=== PATIENT | male | born 1960 | race Caucasian/White ===

== ENCOUNTER 2018-03-03 20:13 | Outpatient (CLI) | END 2018-03-03 20:28 | disposition short-term general hospital (02) | LOC: AMBL 20:13 | PROVIDERS: ATTEND Internal Medicine | DX: M62.838 Other muscle spasm (principal); R19.7 Diarrhea, unspecified ==

== ENCOUNTER 2024-04-12 10:08 | Inpatient (IN) ==
--- NOTE | 2024-04-12 10:34 | ED.PDOC ---
General ED Provider: Dr. RICARDO MOYA MD Chief Complaint: Diarrhea Stated Complaint: Patient is a 63-year-old male that reported to the emergency department after a fall this morning. EMS was called to a fall at approximately 0 930 this morning. It was stated that the patient had fallen and hit his head. EMS reported that the patient refused to come to the emergency department. They stated that they were called back approximately 30 minutes later for patient could not get off the toilet and had severe diarrhea. They stated that the patient was clammy and diaphoretic. They stated the patient's blood pressure was hypotensive with a systolic of 80 and a diastolic of 50. They stated that the patient was also found to be tachycardic. EMS was told that the patient is unknown drug user that lives at home alone and there has been multiple known drug users in and out of the patient's house recently. They stated that the patient has houseperson that comes over for a couple hours a day and that helps him with his medications. They stated that the house that are normally comes over around 10 AM so the patient has not had his medicines this morning. In the emergency department patient reported neck pain midline and on the left side of the neck. He stated that the pain was a 6 out of 10. He stated that the pain was mainly with movement of the neck and palpation. Patient stated that he did not take anything for his pain since his fall this morning. Patient denied any radiation of the pain down the patient's arm. Patient stated that he still had use of his arms and legs. Patient stated that he still has sensation in his arms as well. Patient was alert and oriented person, place, and time. Patient had a GCS of 15. Patient also reported liquid diarrhea that started this morning. Patient denied any acute abdominal pain. Patient denied any hematochezia, hemoptysis, melenic stools. Patient denied any shortness of breath, or chest pain. Patient was found to have an O2 sat of 90% on room air. Patient is not normally on home O2 so we placed patient on nasal cannula oxygen at 2 L to bring the patient's O2 sat up to 95%. Patient was also found to have a heart rate of 108 bpm in the emergency department. Again patient denied any chest pain or shortness of breath. Patient did state that he has been diaphoretic this morning. Patient denied any nausea or vomiting. Patient stated that nothing has made his symptoms better or worse. Patient again stated that he has not treated any of his symptoms. Patient denies any other acute symptoms not currently mentioned in this HPI. Patient did report a history of anxiety and states that he takes Lexapro. Patient stated that he has not had his medicine this morning so he is somewhat anxious as well. Patient's vital signs are stable. Patient's BP is currently 126/70 with a MAP of 79. Patient's heart rate is 105 bpm. Patient's O2 sat is 95% on 2 L nasal cannula. Patient's respirations were 21 respirations per minute. Again patient is GCS 15 and is alert and oriented to person, place, and time. Time Seen by Provider: 04/12/24 10:18 Mode of Arrival: Ambulance Information Source: Patient and EMT Exam Limitations: No limitations Primary Care Provider: DONNIE MESSER PA-C Nursing and Triage Documentation Reviewed and Agree: Yes What is Opioid Naive?: *Opioid Naive implies the patient is not already taking opioids or not chronically receiving opioids on a daily basis. *PRN dosing is not "usually" associated with tolerance. *Patients are at higher risk of over-sedation and aspiration. What is Opioid Tolerant?: *Opioid Tolerance implies less than the expected response to an opioid. *Acquired tolerance is defined by the patient taking 60mg of oral morphine daily (or equianalgesic dose of another opioid) for 1 week or more. *Often associated with chronic pain. *May take more than usual dose to achieve desired pain control. Review of Systems Review Of Systems Constitutional: Reports Diaphoresis Eyes: Reports No symptoms Ears, Nose, Mouth, Throat: Reports No symptoms Respiratory: Reports No symptoms Cardiac: Reports No symptoms GI: Reports Diarrhea : Reports No symptoms Musculoskeletal: Reports Neck pain Skin: Reports No symptoms Neurological: Reports Anxiety Endocrine: Reports No symptoms Hematologic/Lymphatic: Reports No symptoms All Other Systems: Reviewed and Negative [facility] Medical History Diarrhea R19.7 - Diarrhea, unspecified (ICD-10) Headache R51.9 - Headache, unspecified (ICD-10) Encounter for routine history and physical exam for male Z00.00 - Encounter for general adult medical examination without abnormal findings (ICD-10) Bilateral lower extremity pain M79.604 - Pain in right leg (ICD-10) M79.605 - Pain in left leg (ICD-10) Methamphetamine abuse F15.10 - Other stimulant abuse, uncomplicated (ICD-10) Contact with or exposure to communicable disease Z20.9 - Contact with and (suspected) exposure to unspecified communicable disease (ICD-10) Hallucination, visual R44.1 - Visual hallucinations (ICD-10) Pain due to onychomycosis of toenails of both feet B35.1 - Tinea unguium (ICD-10) M79.675 - Pain in left toe(s) (ICD-10) M79.674 - Pain in right toe(s) (ICD-10) Skin lesion of scalp L98.9 - Disorder of the skin and subcutaneous tissue, unspecified (ICD-10) 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 - Nonspecific reaction to tuberculin skin test without active tuberculosis (ICD-10) Family History Mother Breast cancer, left FATHER Hypertension SISTER Cardiac disease Social History Smoking and tobacco status: Former smoker Alcohol intake: former Substance use type: does not use Janet/protestant: BUDDHIST Special janet needs: No Agree to transfusion: Yes Adopted: No Caregiver/support person: No Household members: none Housing: apartment Marital status: D Number of children: 0 Highest education level completed: 9th grade Financial difficulty paying for basics: not applicable service: No Current occupational status: disabled Previous occupational history: photography Pets and animals: No History of recent travel: No Sexually active: No Do you think of yourself as: straight/heterosexual Current gender identity: male Seatbelt use: always Drives intoxicated or rides with intoxicated class a truck driver: No Physical Exam Physical Exam Appearance: Reports Well-nourished Ill-appearing: Moderate Pain Distress: Moderate Eyes: Reports BHARAT, EOMI and Conjunctiva clear ENT: Reports Ears normal, Nose normal and Dry mucosa (Patient had dry mucous membranes in the oral cavity.) Neck: Supple Respiratory: Reports Airway patent, Breath sounds clear, Breath sounds equal and Respirations nonlabored Cardiovascular: Reports Pulses normal, No rub, No murmur and Tachycardia GI/: Reports Soft, Nontender, No masses, Bowel sounds normal and No Organomegaly Musculoskeletal: Reports Normal strength, No edema, No calf tenderness, Limited ROM (Patient had limited range of motion in the cervical spine due to pain.) and Other (Patient had tenderness to palpation over the cervical vertebral column. Patient also had tenderness to palpation over the paraspinal muscles with spasming of the neck. No step-offs were noted.) Skin: Reports Warm, Dry and Normal color Neurological: Reports Sensation intact, Motor intact, Reflexes intact, Cranial nerves intact, Alert and Oriented Psychiatric: Reports Anxious Critical Care Note Critical Care Note Total Critical Care Time (mins): 120 Comments: Critical Care Note: Critical Care Procedure Note Authorized and Performed by:Dr. Ricardo Moya MD, MPH Total critical care time: 120minutes Due to a high probability of clinically significant, life threatening deterioration, the patient required my highest level of preparedness to intervene emergently and I personally spent this critical care time directly and personally managing the patient. This critical care time included obtaining a history; examining the patient; pulse oximetry; ordering and review of studies; arranging urgent treatment with development of a management plan; evaluation of patient's response to treatment; frequent reassessment; and, discussions with other providers. This critical care time was performed to assess and manage the high probability of imminent, life-threatening deterioration that could result in multi-organ failure. It was exclusive of separately billable procedures and treating other patients and teaching time. Please see MDM section and the rest of the note for further information on patient assessment and treatment. Course Course 04/12/24 10:20 04/12/24 10:20 Orders, Labs, Meds: Lab Review 04/12/24 04/12/24 04/12/24 10:20 10:25 11:11 WBC 14.22 H RBC 6.24 H Hgb 16.6 Hct 50.9 MCV 81.6 MCH 26.6 L MCHC 32.6 RDW Coeff of Domingo 13.6 Plt Count 156 Immature Gran % (Auto) 0.6 Neut % (Auto) 89.6 H Lymph % (Auto) 4.9 L Sully % (Auto) 4.8 Eos % (Auto) 0.0 Baso % (Auto) 0.1 Neut # (Auto) 12.7 H Lymph # (Auto) 0.7 Sully # (Auto) 0.7 Eos # (Auto) 0.0 Baso # (Auto) 0.0 Immature Gran # (Auto) 0.1 ESR 2 PT 12.4 H INR 1.20 Puncture Site Rt rad Base Excess -5.1 L O2 Saturation 96.5 ABG pH 7.37 ABG pCO2 35.0 ABG pO2 88.0 ABG HCO3 20.2 L ABG Total CO2 21.3 Farooq Test Pos Hemoglobin 1.6 H Oxyhemoglobin 94.5 L Carboxyhemoglobin 2.0 H Total Hemoglobin 16.8 O2 Delivery Device Cannula Oxygen Liter Flow 2.00 FiO2 % 28.0 Sodium 141.5 Potassium 3.76 Chloride 108.7 H Carbon Dioxide 15.7 L Anion Gap 20.86 BUN 46.3 H Creatinine 1.95 H Estimated GFR (MDRD) 35.00 BUN/Creatinine Ratio 23.74 Glucose 150.8 H Lactic Acid 5.56 H Calcium 9.65 Magnesium 2.09 Total Bilirubin 1.85 H AST 148.8 H ALT 54.2 H Alkaline Phosphatase 132.8 H Total Creatine Kinase 5273.9 H CK-MB (CK-2) 34.700 H* CK-MB (CK-2) % 0.6500 Troponin I 0.130 H Total Protein 7.70 Albumin 4.87 Globulin 2.83 Albumin/Globulin Ratio 1.72 Procalcitonin 1.94 H Plasma/Serum Alcohol Influ A Molecular Assay Negative by naat Influ B Molecular Assay Negative by naat RSV Antigen Negative by naat SARS CoV-2 RNA Rapid FABIENNE Negative 04/12/24 12:19 WBC RBC Hgb Hct MCV MCH MCHC RDW Coeff of Domingo Plt Count Immature Gran % (Auto) Neut % (Auto) Lymph % (Auto) Sully % (Auto) Eos % (Auto) Baso % (Auto) Neut # (Auto) Lymph # (Auto) Sully # (Auto) Eos # (Auto) Baso # (Auto) Immature Gran # (Auto) ESR PT INR Puncture Site Base Excess O2 Saturation ABG pH ABG pCO2 ABG pO2 ABG HCO3 ABG Total CO2 Farooq Test Hemoglobin Oxyhemoglobin Carboxyhemoglobin Total Hemoglobin O2 Delivery Device Oxygen Liter Flow FiO2 % Sodium Potassium Chloride Carbon Dioxide Anion Gap BUN Creatinine Estimated GFR (MDRD) BUN/Creatinine Ratio Glucose Lactic Acid 2.15 H Calcium Magnesium Total Bilirubin AST ALT Alkaline Phosphatase Total Creatine Kinase CK-MB (CK-2) CK-MB (CK-2) % Troponin I Pending Total Protein Albumin Globulin Albumin/Globulin Ratio Procalcitonin Plasma/Serum Alcohol < 10.0 Influ A Molecular Assay Influ B Molecular Assay RSV Antigen SARS CoV-2 RNA Rapid FABIENNE Orders Category Date Time Status EKG-(ED ONLY) Stat CARDIO 04/12/24 10:40 Completed C-collar [ED IMMOBILIZATION] .ONCE EMERGENCY 04/12/24 10:18 Active ED APPLY O2 .ONCE EMERGENCY 04/12/24 10:18 Active ED GOLD FRAME ASSEMBLER APPLIED .ONCE EMERGENCY 04/12/24 10:18 Active ED IV/MEDIPORT/POWERPORT .ONCE EMERGENCY 04/12/24 10:18 Active ED VITAL SIGNS .ONCE EMERGENCY 04/12/24 10:18 Active ABG COOX Stat LAB 04/12/24 11:11 Completed BLOOD ALCOHOL Stat LAB 04/12/24 12:19 Results BLOOD CULTURE (ED ONLY) Stat LAB 04/12/24 11:02 Received C-REACTIVE PROTEIN Stat LAB 04/12/24 10:20 Received CBC W/ AUTO DIFF Stat LAB 04/12/24 10:20 Completed COMPREHENSIVE METABOLIC PANEL Stat LAB 04/12/24 10:20 Completed CREATINE KINASE Stat LAB 04/12/24 10:20 Completed DRUG SCREEN (RAPID FOR ED) [DRUG SCREEN, URINE, RAPID] LAB 04/12/24 12:15 Received Stat ESR Stat LAB 04/12/24 10:20 Completed FLU A/B MOLECULAR Stat LAB 04/12/24 10:25 Completed LACTIC ACID Stat LAB 04/12/24 10:20 Completed LACTIC ACID Stat LAB 04/12/24 12:19 Completed MAGNESIUM Stat LAB 04/12/24 10:20 Completed MRSA SCREEN Routine LAB 04/12/24 10:25 Received PROCALCITONIN Stat LAB 04/12/24 10:20 Completed PT WITH INR Stat LAB 04/12/24 10:20 Completed RSV Stat LAB 04/12/24 10:25 Completed SARS COV-2 RNA RAPID FABIENNE Stat LAB 04/12/24 10:25 Completed TROPONIN I Stat LAB 04/12/24 10:20 Completed TROPONIN I Stat LAB 04/12/24 12:19 Results URINALYSIS C & S IF INDICATED Stat LAB 04/12/24 12:15 Received 0.9 % Sodium Chloride [Saline Flush] Meds 04/12/24 10:18 Active 1 syr IVF PRN PRN Aspirin [Aspirin Chewable] Meds 04/12/24 11:09 Discontinued 324 mg PO ONCE STA Ceftriaxone 1 gm Vial [Rocephin 1 gm Vial] Meds 04/12/24 10:39 Discontinued 1 gm IVP ONCE ONE Lorazepam [Ativan] Meds 04/12/24 10:34 Discontinued 1 mg IVP ONCE STA Sodium Chloride 0.9% [Sodium Chloride] 1,000 ml Meds 04/12/24 10:41 Discontinued IV BOLUS Sodium Chloride 0.9% [Sodium Chloride] 1,000 ml Meds 04/12/24 11:11 Discontinued IV BOLUS CHEST, 1V AP ONLY Stat RADS 04/12/24 10:[address] CERVICAL SPINE W/O CONTRAST Stat RADS 04/12/24 10:[address] HEAD W/O CONTRAST Stat RADS 04/12/24 10:22 Completed Medications Generic Name Dose Route Start Last Admin Trade Name Freq PRN Reason Stop Dose Admin Sodium Chloride 1 syr 04/12/24 10:18 0.9% Sodium Chloride 10 Ml Disp.Syrin IVF PRN PRN To flush IV Discontinued Medications Generic Name Dose Route Start Last Admin Trade Name Freq PRN Reason Stop Dose Admin Aspirin 324 mg 04/12/24 11:09 04/12/24 11:15 Aspirin 81 Mg Tab.Chew PO 04/12/24 11:10 324 mg ONCE STA Administration Ceftriaxone Sodium 1 gm 04/12/24 10:39 04/12/24 10:54 Ceftriaxone 1 Gm Vial IVP 04/12/24 10:40 1 gm ONCE ONE Administration Sodium Chloride 1,000 mls @ 1,000 mls/hr 04/12/24 10:41 04/12/24 11:46 Sodium Chloride IV 04/12/24 11:40 Infused BOLUS ONE Infusion Sodium Chloride 1,000 mls @ 1,000 mls/hr 04/12/24 11:11 04/12/24 12:05 Sodium Chloride IV 04/12/24 12:10 1,000 mls/hr BOLUS ONE Administration Lorazepam 1 mg 04/12/24 10:34 04/12/24 11:15 Lorazepam Inj 2 Mg/Ml Vial IVP 04/12/24 10:35 1 mg ONCE STA Administration Vital Signs: Temp Pulse Resp BP Pulse Ox O2 Flow Rate 04/12/24 12:31 102 H 20 132/82 97 2 04/12/24 10:25 2 04/12/24 10:25 2 04/12/24 10:09 98.2 F 104 H 18 98/67 92 L Discharge Plan Discharge Patient Disposition: PLACED OBSERVATION Discharge Problem: Cervical spine pain, Cervical paraspinal muscle spasm, CHRISTOPHER (acute kidney injury), Acute hypoxic respiratory failure Sepsis Qualifiers: Sepsis type: sepsis due to unspecified organism Sepsis acute organ dysfunction status: unspecified Qualified Code(s): A41.9 - Sepsis, unspecified organism Anxiety disorder Qualifiers: Anxiety disorder type: unspecified anxiety disorder Qualified Code(s): F41.9 - Anxiety disorder, unspecified Fall Qualifiers: Encounter type: initial encounter Qualified Code(s): W19.XXXA - Unspecified fall, initial encounter Rhabdomyolysis Qualifiers: Rhabdomyolysis type: non-traumatic Qualified Code(s): M62.82 - Rhabdomyolysis Did you review [place] OPHTHALMIC AIDE for ALL controlled substances?: Not Applicable ED Provider: RICARDO MOYA Condition: Stable Physician Progress Note: Patient is a 63-year-old male that reported to the emergency department after a fall this morning. EMS was called to a fall at approximately 0 930 this morning. It was stated that the patient had fallen and hit his head. EMS reported that the patient refused to come to the emergency department. They stated that they were called back approximately 30 minutes later for patient could not get off the toilet and had severe diarrhea. They stated that the patient was clammy and diaphoretic. They stated the patient's blood pressure was hypotensive with a systolic of 80 and a diastolic of 50. They stated that the patient was also found to be tachycardic. EMS was told that the patient is unknown drug user that lives at home alone and there has been multiple known drug users in and out of the patient's house recently. They stated that the patient has houseperson that comes over for a couple hours a day and that helps him with his medications. They stated that the house that are normally comes over around 10 AM so the patient has not had his medicines this morning. In the emergency department patient reported neck pain midline and on the left side of the neck. He stated that the pain was a 6 out of 10. He stated that the pain was mainly with movement of the neck and palpation. Patient stated that he did not take anything for his pain since his fall this morning. Patient denied any radiation of the pain down the patient's arm. Patient stated that he still had use of his arms and legs. Patient stated that he still has sensation in his arms as well. Patient was alert and oriented person, place, and time. Patient had a GCS of 15. Patient also reported liquid diarrhea that started this morning. Patient denied any acute abdominal pain. Patient denied any hematochezia, hemoptysis, melenic stools. Patient denied any shortness of breath, or chest pain. Patient was found to have an O2 sat of 90% on room air. Patient is not normally on home O2 so we placed patient on nasal cannula oxygen at 2 L to bring the patient's O2 sat up to 95%. Patient was also found to have a heart rate of 108 bpm in the emergency department. Again patient denied any chest pain or shortness of breath. Patient did state that he has been diaphoretic this morning. Patient denied any nausea or vomiting. Patient stated that nothing has made his symptoms better or worse. Patient again stated that he has not treated any of his symptoms. Patient denies any other acute symptoms not currently mentioned in this HPI. Patient did report a history of anxiety and states that he takes Lexapro. Patient stated that he has not had his medicine this morning so he is somewhat anxious as well. Patient's vital signs are stable. Patient's BP is currently 126/70 with a MAP of 79. Patient's heart rate is 105 bpm. Patient's O2 sat is 95% on 2 L nasal cannula. Patient's respirations were 21 respirations per minute. Again patient is GCS 15 and is alert and oriented to person, place, and time. -Will place patient in a c-collar as he has positive midline pain to palpation. No step-offs noted on physical exam of the vertebral columns. Patient also had tenderness to palpation over the left paraspinal muscles of the cervical spine. Limited ROM in the cervical spine due to pain. -Will order an EKG, troponin, CPK, and baseline labs. Due to patient's diaphoresis (however the patient is afebrile) and elevated heart rate with diarrhea we will treat patient as possible sepsis at the current time and order IV normal saline 1 L bolus, lactate, and blood cultures. Will treat patient with IV ceftriaxone 1 g. -Will order CT of the head due to patient's fall and hitting head at 0 930 this morning. This will be to rule out any intracranial bleeding or any other acute pathology of the head. -Will order CT of the cervical spine to rule out any fractures or dislocations or any other acute pathology. -Will give the patient IV Ativan 1 mg for anxiety at this time. -EKG shows sinus tachycardia with a rate of 103 bpm. Normal axis is noted. No acute ST elevations is noted. This was interpreted by the ER physician. -Due to patient's acute hypoxemic respiratory failure will continue patient on nasal cannula at 2 L. -Patient's ABG was taken while he had the 2 L nasal cannula on and it showed a pH of 7.37, pCO2 of 35, pO2 of 88, and bicarb of 20.2. -Patient has a leukocytosis of 14,000 with a neutrophilic predominance. We have treated for infectious causes with IV ceftriaxone 1 g as mentioned above. We have given IV fluids at 1 L normal saline bolus. -Patient has an christopher. Patient as mentioned above is receiving fluids which should help with hydration of the kidneys. CT of the head shows no intracranial bleed or other acute pathology. -CT of the cervical spine shows no acute fracture. Multilevel degenerative changes noted. -Will remove C collar for patient. -Patient has a transaminitis. Patient's troponin slightly elevated this is likely due to the patient's infectious diffuse ischemia and less likely cardiogenic in nature. Will repeat troponin at 2-hour.. Will give the patient an aspirin. -Patient's lactic acid is 5.5. Patient CPK is 34.7 indicating patient has rhabdomyolysis. Will continue fluids. -([id number]) spoke to hospitalist, KHUSHI Sosa about the patient's diagnosis of CHRISTOPHER, sepsis due to gastrointestinal infection. Also discussed patient's diffuse ischemia with elevated troponins that are stable. Patient vital signs are stable at time of admission. Hospitalist has agreed admit this patient for observation. -Repeat lactic's come down to 2.5. Patient's repeat troponin is stable at 0.126. -Patient will be placed on obs with tele for SEPSIS, CHRISTOPHER, rhabdomyelysis.
[2024-04-12 10:36] LABS: BASOPHILS % (AUTO) 0.1 % (0.0-3.0); HEMATOCRIT 50.9 % (42.0-52.0); HEMOGLOBIN 16.6 g/dl (14.0-18.0); IMMATURE GRANULOCYTE # (AUTO) 0.1 (0.0-1.0); IMMATURE GRANULOCYTE % (AUTO) 0.6 % (0.0-5.0); LYMPHOCYTES # (AUTO) 0.7 K/uL (0.60-3.4); LYMPHOCYTES % (AUTO) 4.9 (10.0-50.0); MEAN CORPUSCULAR HEMOGLOBIN 26.6 pg (27.0-31.0); MEAN CORPUSCULAR HGB CONC 32.6 (31.8-35.4); MEAN CORPUSCULAR VOLUME 81.6 fl (80.0-94.0); MONOCYTES # (AUTO) 0.7 K/uL (0.4-2.0); MONOCYTES % (AUTO) 4.8 (0-10); NEUTROPHILS # (AUTO) 12.7 K/ul (2.0-6.9); NEUTROPHILS % (AUTO) 89.6 % (42.2-75.2); PLATELET COUNT 156 10^3/uL (140-440); RDW COEFFICIENT OF VARIATION 13.6 % (11.6-14.8); RED BLOOD COUNT 6.24 10^6/ul (4.70-6.10); WHITE BLOOD COUNT 14.22 K/ul (4.2-10.2)
[2024-04-12] MEDS: SODIUM CHLORIDE 1,000 ML IV ONE ×2 (10:46→12:05)
[2024-04-12 10:48] LABS: ALBUMIN 4.87 g/dL (3.5-5.0); ALKALINE PHOSPHATASE 132.8 U/L (56-119); ASPARTATE AMINO TRANSFERASE 148.8 U/L (17-59); BILIRUBIN,TOTAL 1.85 mg/dL (0.2-1.3); BLOOD UREA NITROGEN 46.3 mg/dL (9-20); CALCIUM 9.65 mg/dL (8.4-10.2); CARBON DIOXIDE 15.7 mmol/L (22-30.0); CHLORIDE 108.7 mmol/L (98-107); CREATININE 1.95 mg/dL (0.60-1.10); GLUCOSE 150.8 mg/dL (74-106); MAGNESIUM 2.09 mg/dL (1.6-2.3); POTASSIUM 3.76 mmol/L (3.5-5.1); SODIUM 141.5 mmol/L (134.5-145); TOTAL PROTEIN 7.7 g/dL (6.3-8.2)
[2024-04-12 10:52] LABS: PROTHROMBIN TIME 12.4 SEC (9.3-11.0)
[2024-04-12 10:52] LABS: MOLECULAR FLU A NEGATIVE BY NAAT (NEGATIVE); MOLECULAR FLU B NEGATIVE BY NAAT (NEGATIVE); RSV MOLECULAR NEGATIVE BY NAAT (NEGATIVE); SARS COV-2 RNA RAPID NAAT NEGATIVE (NEGATIVE)
[2024-04-12] MEDS: ROCEPHIN 1 GM VIAL IVP ONE (10:54)
[2024-04-12 10:59] LABS: TROPONIN I 0.13 ng/ml (0.0000-0.120)
--- NOTE | 2024-04-12 11:01 | DI ---
EXAM: CHEST RADIOGRAPH (1 VIEW) TECHNIQUE: Frontal Chest Radiograph. HISTORY: Fall COMPARISON: 12/15/2023. FINDINGS: Lines, Tubes, Devices: None Lungs and Pleura: No focal consolidation. No pleural effusion. No pneumothorax. Cardiac silhouette: Normal. Bones: No acute abnormality. IMPRESSION: No acute radiographic abnormality.
--- NOTE | 2024-04-12 11:07 | CT ---
EXAM: BRAIN CT WITHOUT CONTRAST 04/12/2024 INDICATION: Fall COMPARISON: MRI brain 07/01/2022. CT head 01/03/2022 TECHNIQUE: Unenhanced CT of the head was performed from the skull base to the vertex. FINDINGS: No intracranial hemorrhage or extra-axial collection. No mass, mass effect or midline shift. The morales -white matter differentiation is preserved. Cerebral volume loss There are patchy subcortical and per iventricular white matter hypodensities, most commonly seen in chronic white matter microvascular isc hemic changes. The ventricles are normal in size. The basal cisterns are patent. The visualized pa ranasal sinuses and mastoid air cells are clear. The orbits are unremarkable. The visualized osseou s structures are unremarkable. The patient is edentulous. IMPRESSION: - No acute intracranial hemorrhage or mass effect. MRI can be obtained for further evaluation as cli nically indicated - Senescent changes. All CT scans are performed using dose optimization techniques as appropriate to the performed exam an d include at least one of the following: Automated exposure control, adjustment of the mA and/or kV according t o size, and the use of iterative reconstruction technique.
--- NOTE | 2024-04-12 11:07 | CT ---
EXAM: CT CERVICAL SPINE WITHOUT CONTRAST. HISTORY: Fall, neck pain COMPARISON: CT neck soft tissues from 11/10/2022 TECHNIQUE: Serial axial images of the cervical spine were obtained from the skull base through the l nazia apices without contrast. These were viewed in multiple planes. FINDINGS: Vertebral body heights are maintained. No discrete fracture line. No prevertebral soft tissue edema. Multilevel degenerative changes. IMPRESSION: No acute fracture. If symptoms persist, or if there is concern for occult injury, consider follow-up MRI. All CT scans are performed using dose optimization techniques as appropriate to the performed exam an d include at least one of the following: Automated exposure control, adjustment of the mA and/or kV according t o size, and the use of iterative reconstruction technique.
[2024-04-12] MEDS: ATIVAN IVP STA (11:15)
[2024-04-12] MEDS: ASPIRIN CHEWABLE PO STA (11:15)
[2024-04-12 11:16] LABS: ALANINE AMINOTRANSFERASE 54.2 U/L (0-50)
[2024-04-12 11:17] LABS: ABG O2 HGB 94.5 % (95-100); ABG PH 7.37 (7.35-7.45); BEecf -5.1 (-2.0-3.0); HCO3 20.2 (21-28); MetHb 1.6 (0-1.5); TCO2 21.3 (19-24); sO2 96.5 % (94-98); tHb 16.8 g/dl (11.7-17.4)
[2024-04-12 11:23] LABS: ERYTHROCYTE SEDIMENTATION RATE 2 mm/hr (0-15)
[2024-04-12 11:41] LABS: CREATINE KINASE 5273.9 U/L (55-170)
[2024-04-12 11:54] LABS: CREATINE KINASE MB 34.7 ng/ml (0.0-2.38)
[2024-04-12 12:35] LABS: BLOOD ALCOHOL < 10.0 mg/dL (0.0-50.0)
[2024-04-12 12:37] LABS: BILIRUBIN,URINE Negative (NEGATIVE); CLARITY,URINE Clear (CLEAR); COLOR,URINE Dark (YELLOW); GLUCOSE, URINE (UA) Negative (NEGATIVE); KETONES,URINE Trace (NEGATIVE); LEUKOCYTE ESTERASE ,URINE Negative (NEGATIVE); NITRITE,URINE Negative (NEGATIVE); PH,URINE 5.5 (5-9); PROTEIN,URINE 1+ (NEGATIVE); URINE, BLOOD 2+ (NEGATIVE); UROBILINOGEN,URINE 0.2 (0.2)
[2024-04-12 12:47] LABS: TROPONIN I 0.126 ng/ml (0.0000-0.120)
[2024-04-12 12:51] LABS: SQUAMOUS EPITHELIAL CELL,UR 0-2 (0-5)
[2024-04-12 12:52] LABS: AMORPHOUS SEDIMENT,UR TRACE (NOT PRESENT); AMPHETAMINE SCREEN,URINE NEGATIVE (NEGATIVE); BACTERIA,URINE 1+ (NOT PRESENT); BARBITURATE SCREEN,URINE NEGATIVE (NEGATIVE); BENZODIAZEPINES SCREEN,URINE NEGATIVE (NEGATIVE); CANNABINOID SCREEN,URINE NEGATIVE (NEGATIVE); COCAIN SCREEN,URINE NEGATIVE (NEGATIVE); METHADONE URINE SCREEN NEGATIVE (NEGATIVE); METHAMPHETAMINES SCREEN,URINE NEGATIVE (NEGATIVE); MUCUS,URINE 1+ (NOT PRESENT); OPIATE SCREEN,URINE NEGATIVE (NEGATIVE); OXYCODONE URINE SCREEN NEGATIVE (NEGATIVE); PHENCYCLIDINE SCREEN,URINE NEGATIVE (NEGATIVE); TRICYCLIC ANTIDEPRESSANTS URIN NEGATIVE (NEGATIVE)
--- NOTE | 2024-04-12 12:58 | PCM ---
Date of Service Date Seen by Provider: 04/12/24 Time Seen by Provider: 12:00 Admit Day/Time Admission Date: 04/12/24 Admission Time: 12:53 Reason for Admission Chief Complaint: SEPSIS,RHABDOMYOLYSIS,CHRISTOPHER Hospital Provider Hospital Provider: Katie Espino PA-C, [facility] Primary Care Physician Primary Care Physician: DONNIE MESSER PA-C History of Present Illness History of Present Illness: Patient is a 63 year old male with pmhx of cirrhosis, COPD, hypertension, history of dementia who presents for diarrhea. Per report, EMS was called due to a fall this morning. Patient did not want to come in to ER at that time. They were then called again about 30 minutes later because of severe diarrhea. He seemed clammy and diaphoretic. He was also hypotensive in the 80s. He complained of left neck pain from the fall. He had a mildly low O2 sat of 90% on RA. In ER was found to have elevated cr/bun from baseline, elevated cpk, mildly elevated trop, wbc, and procal. Lactic >5. He was given rocephin and [address] head, c spine negative. CXR negative. Admitted to med surg. Case Discussed With Case Discussed With: Patient's case was discussed with the ER Physicians, Dr. Rocha. [facility] Medical History Diarrhea R19.7 - Diarrhea, unspecified (ICD-10) Headache R51.9 - Headache, unspecified (ICD-10) Encounter for routine history and physical exam for male Z00.00 - Encounter for general adult medical examination without abnormal findings (ICD-10) Bilateral lower extremity pain M79.604 - Pain in right leg (ICD-10) M79.605 - Pain in left leg (ICD-10) Methamphetamine abuse F15.10 - Other stimulant abuse, uncomplicated (ICD-10) Contact with or exposure to communicable disease Z20.9 - Contact with and (suspected) exposure to unspecified communicable disease (ICD-10) Hallucination, visual R44.1 - Visual hallucinations (ICD-10) Pain due to onychomycosis of toenails of both feet B35.1 - Tinea unguium (ICD-10) M79.675 - Pain in left toe(s) (ICD-10) M79.674 - Pain in right toe(s) (ICD-10) Skin lesion of scalp L98.9 - Disorder of the skin and subcutaneous tissue, unspecified (ICD-10) 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 - Nonspecific reaction to tuberculin skin test without active tuberculosis (ICD-10) Family History Mother Breast cancer, left FATHER Hypertension SISTER Cardiac disease Social History Smoking and tobacco status: Former smoker Alcohol intake: former Substance use type: does not use Janet/religious: RESTORATIONIST Special janet needs: No Agree to transfusion: Yes Adopted: No Caregiver/support person: No Household members: none Housing: apartment Marital status: D Number of children: 0 Highest education level completed: 9th grade Financial difficulty paying for basics: not applicable service: No Current occupational status: disabled Previous occupational history: photography Pets and animals: No History of recent travel: No Sexually active: No Do you think of yourself as: straight/heterosexual Current gender identity: male Seatbelt use: always Drives intoxicated or rides with intoxicated racing car driver: No Allergies Allergies Allergy/AdvReac Type Severity Reaction Status Date / Time Penicillins Allergy unknown Verified 04/12/24 10:53 tamsulosin (From Flomax) AdvReac Intermediate Swelling Verified 04/12/24 10:53 Current Medications Home Medications lisinopril 20 mg tablet See Rx Instructions .Route .COMPLEX #90 tabs 03/06/24 [Rx Confirmed 04/12/24 Last Taken Unknown] meloxicam 15 mg tablet See Rx Instructions .Route .COMPLEX #30 tabs 04/05/24 [Rx Confirmed 04/12/24 Last Taken Unknown] memantine 10 mg tablet 10 mg PO QDAY 30 days #30 tabs 04/05/24 [Rx Confirmed 04/12/24 Last Taken Unknown] Home Acetaminophen (Acetaminophen 325 Mg Tablet) 650 mg PO Q4H PRN PRN Reason: Mild Pain Lactated Ringer's (Lactated Ringers) 1,000 mls @ 125 mls/hr IV .Q8H RAJWINDER Last Admin: 04/12/24 14:43 Dose: 125 mls/hr Metronidazole (Flagyl 500 Mg/100 Ml) 500 mg in 100 mls @ 100 mls/hr IV Q8HR RAJWINDER Stop: 04/15/24 14:29 Last Admin: 04/12/24 15:09 Dose: 100 mls/hr CEFTRIAXONE/D5W 1 GM PREMIX (Rocephin 1 Gm/50 Ml D5w) 1 gm in 50 mls @ 100 mls/hr IV DAILY [facility] Stop: 04/16/24 08:59 Nystatin (Nystatin 15 Gm Cream) 1 applic TP BID [facility] Sodium Chloride (0.9% Sodium Chloride 10 Ml Disp.Syrin) 1 syr IVF PRN PRN PRN Reason: To flush IV Discontinued Medications Aspirin (Aspirin 81 Mg Tab.Chew) 324 mg PO ONCE STA Stop: 04/12/24 11:10 Last Admin: 04/12/24 11:15 Dose: 324 mg Ceftriaxone Sodium (Ceftriaxone 1 Gm Vial) 1 gm IVP ONCE ONE Stop: 04/12/24 10:40 Last Admin: 04/12/24 10:54 Dose: 1 gm Sodium Chloride (Sodium Chloride) 1,000 mls @ 1,000 mls/hr IV BOLUS ONE Stop: 04/12/24 11:40 Last Infusion: 04/12/24 11:46 Dose: Infused Sodium Chloride (Sodium Chloride) 1,000 mls @ 1,000 mls/hr IV BOLUS ONE Stop: 04/12/24 12:10 Last Infusion: 04/12/24 15:45 Dose: Infused Lorazepam (Lorazepam Inj 2 Mg/Ml Vial) 1 mg IVP ONCE STA Stop: 04/12/24 10:35 Last Admin: 04/12/24 11:15 Dose: 1 mg Opioid Naive vs. Tolerant Does Patient Take Opioids?: No Is Patient Opioid Naive?: Yes What is Opioid Naive?: *Opioid Naive implies the patient is not already taking opioids or not chronically receiving opioids on a daily basis. *PRN dosing is not "usually" associated with tolerance. *Patients are at higher risk of over-sedation and aspiration. Is Patient Opioid Tolerant?: No What is Opioid Tolerant?: *Opioid Tolerance implies less than the expected response to an opioid. *Acquired tolerance is defined by the patient taking 60mg of oral morphine daily (or equianalgesic dose of another opioid) for 1 week or more. *Often associated with chronic pain. *May take more than usual dose to achieve desired pain control. Review of Systems Constitutional: Denies Fever Cardiovascular: Denies Chest pain Respiratory: Denies Cough or Shortness of air Gastrointestinal: Reports Diarrhea; Denies Nausea, Vomiting or Abdominal pain Genitourinary: Denies Dysuria Physical examination Most Recent Vital Signs: Most Recent Vital Signs Temperature 98.2 F 04/12/24 10:09 Temperature Source Oral 04/12/24 10:09 Pulse Rate 102 H 04/12/24 12:31 Respiratory Rate 20 04/12/24 12:31 Blood Pressure 132/82 04/12/24 12:31 O2 Sat by Pulse Oximetry 97 04/12/24 12:31 Oxygen Flow Rate 2 04/12/24 12:31 Height 5 ft 10 in 04/12/24 10:09 Weight 82.5 kg 04/12/24 10:09 Appearance: Positive No Apparent Distress and Other (+alert, answers with one worded answers. ) Skin: Negative Good Turgor HEENT: Positive Normocephalic and Atraumatic; Negative Oral Mucous Moist Neck: Positive Supple and Midline Trachea Chest/Lungs: Positive Clear to Auscultation Bilaterally; Negative Rales, Rhonci or Wheezes Heart: Positive RRR and Tachycardia GI/: Positive Soft, Nontender, Bowel Sounds Normal and No Distention Extremities: Negative Edema Neurological: Positive Cranial Nerves Intact and Alert Psychiatric: Negative Appropriate Mood or Appropriate Affect (+very flat affect ) Labs This Visit Labs This Visit: Labs This Visit 04/12/24 04/12/24 04/12/24 10:20 10:25 11:11 WBC 14.22 H RBC 6.24 H Hgb 16.6 Hct 50.9 MCV 81.6 MCH 26.6 L MCHC 32.6 RDW Coeff of Domingo 13.6 Plt Count 156 Immature Gran % (Auto) 0.6 Neut % (Auto) 89.6 H Lymph % (Auto) 4.9 L Holt % (Auto) 4.8 Eos % (Auto) 0.0 Baso % (Auto) 0.1 Neut # (Auto) 12.7 H Lymph # (Auto) 0.7 Holt # (Auto) 0.7 Eos # (Auto) 0.0 Baso # (Auto) 0.0 Immature Gran # (Auto) 0.1 ESR 2 PT 12.4 H INR 1.20 Puncture Site Rt rad Base Excess -5.1 L O2 Saturation 96.5 ABG pH 7.37 ABG pCO2 35.0 ABG pO2 88.0 ABG HCO3 20.2 L ABG Total CO2 21.3 Farooq Test Pos Hemoglobin 1.6 H Oxyhemoglobin 94.5 L Carboxyhemoglobin 2.0 H Total Hemoglobin 16.8 O2 Delivery Device Cannula Oxygen Liter Flow 2.00 FiO2 % 28.0 Sodium 141.5 Potassium 3.76 Chloride 108.7 H Carbon Dioxide 15.7 L Anion Gap 20.86 BUN 46.3 H Creatinine 1.95 H Estimated GFR (MDRD) 35.00 BUN/Creatinine Ratio 23.74 Glucose 150.8 H Lactic Acid 5.56 H Calcium 9.65 Magnesium 2.09 Total Bilirubin 1.85 H AST 148.8 H ALT 54.2 H Alkaline Phosphatase 132.8 H Total Creatine Kinase 5273.9 H CK-MB (CK-2) 34.700 H* CK-MB (CK-2) % 0.6500 Troponin I 0.130 H Total Protein 7.70 Albumin 4.87 Globulin 2.83 Albumin/Globulin Ratio 1.72 Procalcitonin 1.94 H Urine Color Urine Clarity Urine pH Ur Specific Eden Urine Protein Urine Glucose (UA) Urine Ketones Urine Blood Urine Nitrite Urine Bilirubin Urine Urobilinogen Ur Leukocyte Esterase Urine Microscopic RBC Urine Microscopic WBC Ur Squamous Epith Cells Amorphous Sediment Urine Bacteria Hyaline Casts Urine Mucus Urine Opiates Screen Ur Oxycodone Screen Urine Methadone Screen Ur Barbiturates Screen U Tricyclic Antidepress Ur Phencyclidine Scrn Ur Amphetamine Screen U Methamphetamines Scrn U Benzodiazepines Scrn Urine Cocaine Screen U Cannabinoids Screen Plasma/Serum Alcohol Influ A Molecular Assay Negative by naat Influ B Molecular Assay Negative by naat RSV Antigen Negative by naat SARS CoV-2 RNA Rapid FABIENNE Negative 04/12/24 04/12/24 12:15 12:19 WBC RBC Hgb Hct MCV MCH MCHC RDW Coeff of Domingo Plt Count Immature Gran % (Auto) Neut % (Auto) Lymph % (Auto) Holt % (Auto) Eos % (Auto) Baso % (Auto) Neut # (Auto) Lymph # (Auto) Holt # (Auto) Eos # (Auto) Baso # (Auto) Immature Gran # (Auto) ESR PT INR Puncture Site Base Excess O2 Saturation ABG pH ABG pCO2 ABG pO2 ABG HCO3 ABG Total CO2 Farooq Test Hemoglobin Oxyhemoglobin Carboxyhemoglobin Total Hemoglobin O2 Delivery Device Oxygen Liter Flow FiO2 % Sodium Potassium Chloride Carbon Dioxide Anion Gap BUN Creatinine Estimated GFR (MDRD) BUN/Creatinine Ratio Glucose Lactic Acid 2.15 H Calcium Magnesium Total Bilirubin AST ALT Alkaline Phosphatase Total Creatine Kinase CK-MB (CK-2) CK-MB (CK-2) % Troponin I 0.126 H Total Protein Albumin Globulin Albumin/Globulin Ratio Procalcitonin Urine Color Dark Urine Clarity Clear Urine pH 5.5 Ur Specific Eden >=1.030 Urine Protein 1+ H Urine Glucose (UA) Negative Urine Ketones Trace H Urine Blood 2+ H Urine Nitrite Negative Urine Bilirubin Negative Urine Urobilinogen 0.2 Ur Leukocyte Esterase Negative Urine Microscopic RBC 5-10 Urine Microscopic WBC 10-20 Ur Squamous Epith Cells 0-2 Amorphous Sediment Trace Urine Bacteria 1+ Hyaline Casts 2-5 Urine Mucus 1+ Urine Opiates Screen Negative Ur Oxycodone Screen Negative Urine Methadone Screen Negative Ur Barbiturates Screen Negative U Tricyclic Antidepress Negative Ur Phencyclidine Scrn Negative Ur Amphetamine Screen Negative U Methamphetamines Scrn Negative U Benzodiazepines Scrn Negative Urine Cocaine Screen Negative U Cannabinoids Screen Negative Plasma/Serum Alcohol < 10.0 Influ A Molecular Assay Influ B Molecular Assay RSV Antigen SARS CoV-2 RNA Rapid FABIENNE Imaging Imaging: EXAM: BRAIN CT WITHOUT CONTRAST 04/12/2024 INDICATION: Fall COMPARISON: MRI brain 07/01/2022. CT head 01/03/2022 TECHNIQUE: Unenhanced CT of the head was performed from the skull base to the vertex. FINDINGS: No intracranial hemorrhage or extra-axial collection. No mass, mass effect or midline shift. The morales-white matter differentiation is preserved. Cerebral volume loss There are patchy subcortical and periventricular white matter hypodensities, most commonly seen in chronic white matter microvascular ischemic changes. The ventricles are normal in size. The basal cisterns are patent. The visualized paranasal sinuses and mastoid air cells are clear. The orbits are unremarkable. The visualized osseous structures are unremarkable. The patient is edentulous. IMPRESSION: - No acute intracranial hemorrhage or mass effect. MRI can be obtained for further evaluation as clinically indicated - Senescent changes. EXAM: CT CERVICAL SPINE WITHOUT CONTRAST. HISTORY: Fall, neck pain COMPARISON: CT neck soft tissues from 11/10/2022 TECHNIQUE: Serial axial images of the cervical spine were obtained from the skull base through the lung apices without contrast. These were viewed in multiple planes. FINDINGS: Vertebral body heights are maintained. No discrete fracture line. No prevertebral soft tissue edema. Multilevel degenerative changes. IMPRESSION: No acute fracture. If symptoms persist, or if there is concern for occult injury, consider follow- up MRI. EXAM: CHEST RADIOGRAPH (1 VIEW) TECHNIQUE: Frontal Chest Radiograph. HISTORY: Fall COMPARISON: 12/15/2023. FINDINGS: Lines, Tubes, Devices: None Lungs and Pleura: No focal consolidation. No pleural effusion. No pneumothorax. Cardiac silhouette: Normal. Bones: No acute abnormality. IMPRESSION: No acute radiographic abnormality. EXAM: CT OF THE ABDOMEN AND PELVIS WITH CONTRAST COMPARISON: CT abdomen pelvis 02/20/2024 HISTORY: Diarrhea. Sepsis. TECHNIQUE: Axial CT images were obtained through the abdomen and pelvis with the administration of intravenous contrast. Coronal and sagittal reformatted images were also submitted for interpretation. FINDINGS: Liver: Hepatic cirrhosis and sequela of portal hypertension including recanalized paraumbilical vein and splenomegaly. Gallbladder: Cholelithiasis without evidence of acute cholecystitis. Bile ducts: No intra or extrahepatic biliary ductal dilatation. Pancreas: No lesions. The main pancreatic duct is not dilated. Spleen: The spleen is mildly enlarged by volume measuring 11.4 x 8.2 cm. Adrenal glands: Indeterminate right adrenal nodule measuring up to 2.4 cm. Kidneys: No hydronephrosis. Nonobstructing 1.6 cm left renal calculus. Ureters: Within normal limits Urinary bladder: [place] catheter in place Reproductive organs: Prostate measures 5.6 cm in diameter. Peritoneum: No ascites or free intraperitoneal air. Gastrointestinal tract: Normal caliber. Wall thickening in the left-sided colon which may represent colitis versus portal colopathy. Liquefied stool in the transverse and right-sided colon may represent enterocolitis. Clinical correlation advised. Fecal ball in the rectum with wall thickening suggestive of fecal impaction and stercoral colitis. Clinical correlation advised. The appendix is not well visualized. Lymph nodes: No lymphadenopathy. Vessels: Atherosclerosis in the abdominal aorta and branch vessels. No aneurysm. Abdominal wall: Small fat containing bilateral inguinal hernias. Small hiatal hernia. Osseous structures: Degenerative changes. Moderate height loss of L1 vertebral body, unchanged Lower thorax: Mild bibasilar atelectasis and/or pneumonitis. IMPRESSION: - Wall thickening in the left-sided colon which may represent colitis versus portal colopathy. Liquefied stool in the transverse and right-sided colon may represent enterocolitis. Clinical correlation advised. - Fecal ball in the rectum with wall thickening suggestive of fecal impaction and stercoral colitis. Clinical correlation advised. - Nonobstructing 1.6 cm left renal calculus. - Cholelithiasis without evidence of acute cholecystitis. - Hepatic cirrhosis and sequela of portal hypertension including recanalized paraumbilical vein and mild splenomegaly. - Indeterminate right adrenal nodule measuring up to 2.4 cm. Consider further evaluation dedicated non-emergent MRI of the abdomen. Review Statement Review Statement: I have independently reviewed and interpreted the labs/EKGs/imaging that were ordered by the ER provider. I have reviewed all outside records that are available currently in our EMR including imaging/notes/labs from previous visits. Plan Plan: 1. Acute colitis - With infection markers elevated, will cover with antibiotics. Flagyl and rocephin. Trend wbc and procal. 2. CHRISTOPHER stage I in setting of acute diarrhea, dehydration, and rhabdo - Received 2L in ER. Continue LR at 125 ml/hr. 3. Sepsis in setting of acute colitis - Blood cultures pending. Lactic improved. Cont abx. 4. Rhabd - CPK >5000, continue fluids, repeat CPK tomorrow. 5. Fecal impaction - Having diarrhea around it. Will trial mineral oil enema and if distal enough will disimpact. 6. NSTEMI - Trop mildly elevated likely in setting of sepsis, christopher, rhabdo. Denies chest pain. No stemi on EKG. Repeat troponin mildly improved. Will trend. DVT Prophylaxis: Ambulation Time Spent: Greater than 80 minutes spent with patient, 50% of the time spent with this patient was devoted to counseling and coordination of care. [facility] Plannin minutes spent discussing advance care planning. Admit to: Obs Discussed Plan of Care with Dr. Sabra Coronel. Medications Medication Orders: Medications Ordered Category Date Time Status 0.9 % Sodium Chloride [Saline Flush] Meds 04/12/24 10:18 Active 1 syr IVF PRN PRN Acetaminophen [Tylenol] Meds 04/12/24 12:50 Active 650 mg PO Q4H PRN Ringers Lactated Solution [Lactated Ringers] 1,000 ml Meds 04/12/24 13:00 Active IV 125 mls/hr
--- NOTE | 2024-04-12 14:13 | CT ---
EXAM: CT OF THE ABDOMEN AND PELVIS WITH CONTRAST COMPARISON: CT abdomen pelvis 02/20/2024 HISTORY: Diarrhea. Sepsis. TECHNIQUE: Axial CT images were obtained through the abdomen and pelvis with the administration of in travenous contrast. Coronal and sagittal reformatted images were also submitted for interpretation. FINDINGS: Liver: Hepatic cirrhosis and sequela of portal hypertension including recanalized paraumbilical vein and splenomegaly. Gallbladder: Cholelithiasis without evidence of acute cholecystitis. Bile ducts: No intra or extrahepatic biliary ductal dilatation. Pancreas: No lesions. The main pancreatic duct is not dilated. Spleen: The spleen is mildly enlarged by volume measuring 11.4 x 8.2 cm. Adrenal glands: Indeterminate right adrenal nodule measuring up to 2.4 cm. Kidneys: No hydronephrosis. Nonobstructing 1.6 cm left renal calculus. Ureters: Within normal limits Urinary bladder: [place] catheter in place Reproductive organs: Prostate measures 5.6 cm in diameter. Peritoneum: No ascites or free intraperitoneal air. Gastrointestinal tract: Normal caliber. Wall thickening in the left-sided colon which may represent colitis versus portal colopathy. Liquefied stool in the transverse and right-sided colon may repres ent enterocolitis. Clinical correlation advised. Fecal ball in the rectum with wall thickening sugg estive of fecal impaction and stercoral colitis. Clinical correlation advised. The appendix is not well visualized. Lymph nodes: No lymphadenopathy. Vessels: Atherosclerosis in the abdominal aorta and branch vessels. No aneurysm. Abdominal wall: Small fat containing bilateral inguinal hernias. Small hiatal hernia. Osseous structures: Degenerative changes. Moderate height loss of L1 vertebral body, unchanged Lower thorax: Mild bibasilar atelectasis and/or pneumonitis. IMPRESSION: - Wall thickening in the left-sided colon which may represent colitis versus portal colopathy. Lique fied stool in the transverse and right-sided colon may represent enterocolitis. Clinical correlation advised. - Fecal ball in the rectum with wall thickening suggestive of fecal impaction and stercoral colitis. Clinical correlation advised. - Nonobstructing 1.6 cm left renal calculus. - Cholelithiasis without evidence of acute cholecystitis. - Hepatic cirrhosis and sequela of portal hypertension including recanalized paraumbilical vein and m ild splenomegaly. - Indeterminate right adrenal nodule measuring up to 2.4 cm. Consider further evaluation dedicated no n-emergent MRI of the abdomen. All CT scans are performed using dose optimization techniques as appropriate to the performed exam an d include at least one of the following: Automated exposure control, adjustment of the mA and/or kV according t o size, and the use of iterative reconstruction technique.
[2024-04-12] MEDS: LACTATED RINGERS 1,000 ML IV SCH (14:43)
[2024-04-12 14:48] VITALS: BMI 25.6
[2024-04-12] MEDS: FLAGYL 500 MG/100 ML 500 MG/100 ML BAG IV SCH (15:09)
[2024-04-12] MEDS: DULCOLAX RC ONE (16:49)
[2024-04-12] MEDS: NYSTATIN CREAM TP SCH (20:38)
[2024-04-13 05:24] LABS: BASOPHILS % (AUTO) 0.3 % (0.0-3.0); HEMATOCRIT 43.2 % (42.0-52.0); IMMATURE GRANULOCYTE % (AUTO) 0.3 % (0.0-5.0); LYMPHOCYTES # (AUTO) 0.8 K/uL (0.60-3.4); LYMPHOCYTES % (AUTO) 9.4 (10.0-50.0); MEAN CORPUSCULAR HEMOGLOBIN 26.8 pg (27.0-31.0); MEAN CORPUSCULAR HGB CONC 32.4 (31.8-35.4); MEAN CORPUSCULAR VOLUME 82.6 fl (80.0-94.0); MONOCYTES # (AUTO) 0.8 K/uL (0.4-2.0); MONOCYTES % (AUTO) 9.7 (0-10); NEUTROPHILS # (AUTO) 6.4 K/ul (2.0-6.9); NEUTROPHILS % (AUTO) 80.3 % (42.2-75.2); PLATELET COUNT 118 10^3/uL (140-440); RED BLOOD COUNT 5.23 10^6/ul (4.70-6.10)
[2024-04-13 05:36] LABS: ALANINE AMINOTRANSFERASE 56.6 U/L (0-50); ALBUMIN 3.57 g/dL (3.5-5.0); ALKALINE PHOSPHATASE 74.2 U/L (56-119); ASPARTATE AMINO TRANSFERASE 250.6 U/L (17-59); BILIRUBIN,TOTAL 1.86 mg/dL (0.2-1.3); BLOOD UREA NITROGEN 48.7 mg/dL (9-20); CALCIUM 8.89 mg/dL (8.4-10.2); CARBON DIOXIDE 19.7 mmol/L (22-30.0); CHLORIDE 111.4 mmol/L (98-107); GLUCOSE 108.2 mg/dL (74-106); POTASSIUM 4.35 mmol/L (3.5-5.1); SODIUM 139.3 mmol/L (134.5-145); TOTAL PROTEIN 6.06 g/dL (6.3-8.2)
[2024-04-13 05:38] LABS: WHITE BLOOD COUNT 7.94 K/ul (4.2-10.2)
[2024-04-13 06:01] LABS: CREATININE 1.37 mg/dL (0.60-1.10)
[2024-04-13 07:13] LABS: CREATINE KINASE 7907.7 U/L (55-170)
[2024-04-13] MEDS: NAMENDA PO SCH (08:20)
[2024-04-13] MEDS: ROCEPHIN 1 GM/50 ML D5W 1 GM/50 ML BAG IV SCH (09:39)
[2024-04-13] MEDS: LACTATED RINGERS 1,000 ML IV SCH (09:40)
--- NOTE | 2024-04-13 12:52 | PCM.PROG ---
Date/Time Seen Date Seen by Provider: 04/13/24 Time Seen by Provider: 08:30 Provider Provider: [facility], [facility] Chief Complaint Chief Complaint: SEPSIS,RHABDOMYOLYSIS,CHRISTOPHER Subjective Subjective: Patient is more alert today. More conversational. States he just doesn't feel well but has difficulty characterizing. Labs overall improved except CPK worsened overnight. Has continued to have some loose stools. CT a/p yesterday showed a fecal impaction but unable to reach it with digital exam. Objective Appearance: Positive No Apparent Distress and Other (+Alert, sitting up in bed, more conversational. ) Chest/Lungs: Positive Clear to Auscultation Bilaterally; Negative Rales, Rhonci or Wheezes Heart: Positive RRR GI/: Positive Soft, Nontender, Bowel Sounds Normal and No Distention Neurological: Positive Cranial Nerves Intact, Alert, Disorinted and Other (+generalized weakness ) Vital Signs Vital Signs: Vital Signs: Last 24 Hours 04/12/24 14:21 04/12/24 14:21 04/12/24 15:00 Temperature 98.5 F Temperature Source Temporal Artery Scan Pulse Rate 98 Respiratory Rate 18 Blood Pressure Blood Pressure Mean Blood Pressure Left Arm 121/80 Blood Pressure Location Blood Pressure Position Supine O2 Sat by Pulse Oximetry 96 Oxygen Delivery Method Nasal Cannula Nasal Cannula Nasal Cannula Oxygen Flow Rate 2 2 Height 5 ft 10 in Weight 81 kg Telemetry Type Telemetry Monitoring Telemetry Heart Rate EKG NJ Interval EKG QRS Interval Telemetry Strip Reading 04/12/24 16:00 04/12/24 16:51 04/12/24 17:16 Temperature Temperature Source Pulse Rate Respiratory Rate Blood Pressure Blood Pressure Mean Blood Pressure Left Arm Blood Pressure Location Blood Pressure Position O2 Sat by Pulse Oximetry 95 Oxygen Delivery Method Nasal Cannula Nasal Cannula Nasal Cannula Oxygen Flow Rate 2 Height Weight Telemetry Type Telemetry Monitoring Telemetry Heart Rate EKG NJ Interval EKG QRS Interval Telemetry Strip Reading 04/12/24 17:46 04/12/24 18:00 04/12/24 19:00 Temperature 98.4 F Temperature Source Tympanic Pulse Rate 105 H Respiratory Rate 18 Blood Pressure 139/115 H Blood Pressure Mean 123 Blood Pressure Left Arm Blood Pressure Location Blood Pressure Position O2 Sat by Pulse Oximetry 94 L Oxygen Delivery Method Nasal Cannula Nasal Cannula Oxygen Flow Rate Height Weight Telemetry Type Remote Telemetry Telemetry Monitoring Continues Telemetry Heart Rate 82 EKG NJ Interval 0.17 EKG QRS Interval 0.07 Telemetry Strip Reading SINUS RHYTHM 04/12/24 19:00 04/12/24 20:00 04/12/24 20:00 Temperature Temperature Source Pulse Rate Respiratory Rate Blood Pressure Blood Pressure Mean Blood Pressure Left Arm Blood Pressure Location Blood Pressure Position O2 Sat by Pulse Oximetry Oxygen Delivery Method Nasal Cannula Nasal Cannula Nasal Cannula Oxygen Flow Rate 2 Height Weight Telemetry Type Telemetry Monitoring Telemetry Heart Rate EKG NJ Interval EKG QRS Interval Telemetry Strip Reading 04/12/24 20:00 04/12/24 20:36 04/12/24 21:00 Temperature 98.3 F Temperature Source Temporal Artery Scan Pulse Rate 102 H Respiratory Rate 17 Blood Pressure 124/76 Blood Pressure Mean 92 Blood Pressure Left Arm Blood Pressure Location Right Arm Blood Pressure Position O2 Sat by Pulse Oximetry 94 L 95 Oxygen Delivery Method Nasal Cannula Nasal Cannula Nasal Cannula Oxygen Flow Rate 2 2 Height Weight Telemetry Type Telemetry Monitoring Telemetry Heart Rate EKG NJ Interval EKG QRS Interval Telemetry Strip Reading 04/12/24 22:00 04/12/24 23:00 04/13/24 00:00 Temperature Temperature Source Pulse Rate Respiratory Rate Blood Pressure Blood Pressure Mean Blood Pressure Left Arm Blood Pressure Location Blood Pressure Position O2 Sat by Pulse Oximetry Oxygen Delivery Method Nasal Cannula Nasal Cannula Nasal Cannula Oxygen Flow Rate Height Weight Telemetry Type Telemetry Monitoring Telemetry Heart Rate EKG NJ Interval EKG QRS Interval Telemetry Strip Reading 04/13/24 01:00 04/13/24 01:00 04/13/24 01:55 Temperature Temperature Source Pulse Rate Respiratory Rate Blood Pressure Blood Pressure Mean Blood Pressure Left Arm Blood Pressure Location Blood Pressure Position O2 Sat by Pulse Oximetry Oxygen Delivery Method Nasal Cannula Nasal Cannula Oxygen Flow Rate Height Weight Telemetry Type Remote Telemetry Telemetry Monitoring Continues Telemetry Heart Rate 87 EKG NJ Interval 0.16 EKG QRS Interval 0.06 Telemetry Strip Reading SR 04/13/24 01:56 04/13/24 03:00 04/13/24 04:00 Temperature Temperature Source Pulse Rate 97 Respiratory Rate 18 Blood Pressure Blood Pressure Mean Blood Pressure Left Arm Blood Pressure Location Blood Pressure Position O2 Sat by Pulse Oximetry 96 Oxygen Delivery Method Nasal Cannula Nasal Cannula Nasal Cannula Oxygen Flow Rate 2 Height Weight Telemetry Type Telemetry Monitoring Telemetry Heart Rate EKG NJ Interval EKG QRS Interval Telemetry Strip Reading 04/13/24 05:00 04/13/24 05:02 04/13/24 05:55 Temperature 97.3 F L Temperature Source Temporal Artery Scan Pulse Rate 82 Respiratory Rate 20 Blood Pressure 104/75 Blood Pressure Mean 84 Blood Pressure Left Arm Blood Pressure Location Right Arm Blood Pressure Position Sitting O2 Sat by Pulse Oximetry 94 L Oxygen Delivery Method Nasal Cannula Nasal Cannula Nasal Cannula Oxygen Flow Rate 2 Height Weight Telemetry Type Telemetry Monitoring Telemetry Heart Rate EKG NJ Interval EKG QRS Interval Telemetry Strip Reading 04/13/24 05:57 04/13/24 07:00 04/13/24 07:00 Temperature Temperature Source Pulse Rate Respiratory Rate Blood Pressure Blood Pressure Mean Blood Pressure Left Arm Blood Pressure Location Blood Pressure Position O2 Sat by Pulse Oximetry 94 L Oxygen Delivery Method Nasal Cannula Nasal Cannula Oxygen Flow Rate 2 Height Weight Telemetry Type Remote Telemetry Telemetry Monitoring Continues Telemetry Heart Rate 94 EKG NJ Interval 0.17 EKG QRS Interval 0.06 Telemetry Strip Reading NSR 04/13/24 07:58 04/13/24 08:00 04/13/24 09:00 Temperature Temperature Source Pulse Rate Respiratory Rate Blood Pressure Blood Pressure Mean Blood Pressure Left Arm Blood Pressure Location Blood Pressure Position O2 Sat by Pulse Oximetry Oxygen Delivery Method Nasal Cannula Nasal Cannula Nasal Cannula Oxygen Flow Rate 2 Height Weight Telemetry Type Telemetry Monitoring Telemetry Heart Rate EKG NJ Interval EKG QRS Interval Telemetry Strip Reading 04/13/24 09:41 04/13/24 10:00 04/13/24 10:00 Temperature 99.2 F Temperature Source Temporal Artery Scan Pulse Rate 105 H Respiratory Rate 18 Blood Pressure 146/91 H Blood Pressure Mean 109 Blood Pressure Left Arm Blood Pressure Location Right Arm Blood Pressure Position Sitting O2 Sat by Pulse Oximetry 96 97 Oxygen Delivery Method Nasal Cannula Room Air Room Air Oxygen Flow Rate Height Weight Telemetry Type Telemetry Monitoring Telemetry Heart Rate EKG NJ Interval EKG QRS Interval Telemetry Strip Reading 04/13/24 11:00 04/13/24 12:00 Temperature Temperature Source Pulse Rate Respiratory Rate Blood Pressure Blood Pressure Mean Blood Pressure Left Arm Blood Pressure Location Blood Pressure Position O2 Sat by Pulse Oximetry Oxygen Delivery Method Room Air Room Air Oxygen Flow Rate Height Weight Telemetry Type Telemetry Monitoring Telemetry Heart Rate EKG NJ Interval EKG QRS Interval Telemetry Strip Reading Lab Results Lab Results: Lab Results: Last 24 Hours 04/13/24 04/12/24 04/12/24 05:00 18:10 12:15 WBC 7.94 D RBC 5.23 Hgb 14.0 Hct 43.2 D MCV 82.6 MCH 26.8 L MCHC 32.4 RDW Coeff of [place] 14.0 Plt Count 118 L Immature Gran % (Auto) 0.3 Neut % (Auto) 80.3 H Lymph % (Auto) 9.4 L [place] % (Auto) 9.7 Eos % (Auto) 0.0 Baso % (Auto) 0.3 Neut # (Auto) 6.4 Lymph # (Auto) 0.8 [place] # (Auto) 0.8 Eos # (Auto) 0.0 Baso # (Auto) 0.0 Immature Gran # (Auto) 0.0 Sodium 139.3 Potassium 4.35 Chloride 111.4 H Carbon Dioxide 19.7 L Anion Gap 12.55 BUN 48.7 H Creatinine 1.37 H D Estimated GFR (MDRD) 52.00 BUN/Creatinine Ratio 35.54 Glucose 108.2 H Calcium 8.89 Total Bilirubin 1.86 H AST 250.6 H D ALT 56.6 H Alkaline Phosphatase 74.2 D Total Creatine Kinase 7907.7 H CK-MB (CK-2) 26.000 H* CK-MB (CK-2) % 0.3200 Troponin I 0.104 C-Reactive Prot, Quant Total Protein 6.06 L Albumin 3.57 Globulin 2.49 Albumin/Globulin Ratio 1.43 Procalcitonin 2.16 H Urine Color Dark Urine Clarity Clear Urine pH 5.5 Ur Specific [place] >=1.030 Urine Protein 1+ H Urine Glucose (UA) Negative Urine Ketones Trace H Urine Blood 2+ H Urine Nitrite Negative Urine Bilirubin Negative Urine Urobilinogen 0.2 Ur Leukocyte Esterase Negative Urine Microscopic RBC 5-10 Urine Microscopic WBC 10-20 Ur Squamous Epith Cells 0-2 Amorphous Sediment Trace Urine Bacteria 1+ Hyaline Casts 2-5 Urine Mucus 1+ Urine Opiates Screen Negative Ur Oxycodone Screen Negative Urine Methadone Screen Negative Ur Barbiturates Screen Negative U Tricyclic Antidepress Negative Ur Phencyclidine Scrn Negative Ur Amphetamine Screen Negative U Methamphetamines Scrn Negative U Benzodiazepines Scrn Negative Urine Cocaine Screen Negative U Cannabinoids Screen Negative 04/12/24 10:20 WBC RBC Hgb Hct MCV MCH MCHC RDW Coeff of [place] Plt Count Immature Gran % (Auto) Neut % (Auto) Lymph % (Auto) [place] % (Auto) Eos % (Auto) Baso % (Auto) Neut # (Auto) Lymph # (Auto) [place] # (Auto) Eos # (Auto) Baso # (Auto) Immature Gran # (Auto) Sodium Potassium Chloride Carbon Dioxide Anion Gap BUN Creatinine Estimated GFR (MDRD) BUN/Creatinine Ratio Glucose Calcium Total Bilirubin AST ALT Alkaline Phosphatase Total Creatine Kinase CK-MB (CK-2) CK-MB (CK-2) % Troponin I C-Reactive Prot, Quant 20 H Total Protein Albumin Globulin Albumin/Globulin Ratio Procalcitonin Urine Color Urine Clarity Urine pH Ur Specific [place] Urine Protein Urine Glucose (UA) Urine Ketones Urine Blood Urine Nitrite Urine Bilirubin Urine Urobilinogen Ur Leukocyte Esterase Urine Microscopic RBC Urine Microscopic WBC Ur Squamous Epith Cells Amorphous Sediment Urine Bacteria Hyaline Casts Urine Mucus Urine Opiates Screen Ur Oxycodone Screen Urine Methadone Screen Ur Barbiturates Screen U Tricyclic Antidepress Ur Phencyclidine Scrn Ur Amphetamine Screen U Methamphetamines Scrn U Benzodiazepines Scrn Urine Cocaine Screen U Cannabinoids Screen Additional Comments Additional Comments: I have independently reviewed and interpreted the labs/EKGs/imaging ordered during this hospital stay. I have reviewed outside records that are available in our EMR that pertain to medical stay including imaging/notes/labs from previous visits. Active Medications Active Medications: Medications Generic Name Dose Route Start Last Admin Trade Name Freq PRN Reason Stop Dose Admin Acetaminophen 650 mg 04/12/24 12:50 Acetaminophen 325 Mg Tablet PO Q4H PRN Mild Pain Metronidazole 500 mg in 100 mls @ 100 mls/hr 04/12/24 14:30 04/13/24 12:22 Flagyl 500 Mg/100 Ml IV 04/15/24 14:29 100 mls/hr Q8HR RAJWINDER Administration CEFTRIAXONE/D5W 1 GM PREMIX 1 gm in 50 mls @ 100 mls/hr 04/13/24 09:00 04/13/24 09:39 Rocephin 1 Gm/50 Ml D5w IV 04/16/24 08:59 100 mls/hr DAILY RAJWINDER Administration Lactated Ringer's 1,000 mls @ 200 mls/hr 04/13/24 08:26 04/13/24 09:40 Lactated Ringers IV 200 mls/hr .Q5H RAJWINDER Administration Memantine 10 mg 04/13/24 09:00 04/13/24 08:20 Memantine Hcl 10 Mg Tablet PO 10 mg DAILY RAJWINDER Administration Nystatin 1 applic 04/12/24 21:00 04/13/24 08:22 Nystatin 15 Gm Cream TP 1 applic BID RAJWINDER Administration Sodium Chloride 1 syr 04/12/24 10:18 0.9% Sodium Chloride 10 Ml Disp.Syrin IVF PRN PRN To flush IV Plan Plan: 1. Acute colitis - With infection markers elevated, will cover with antibiotics. Continue flagyl and rocephin. Trend wbc and procal. 2. CHRISTOPHER stage I in setting of acute diarrhea, dehydration, and rhabdo - Improved. Received 2L in ER. Continue LR. 3. Sepsis in setting of acute colitis - Blood cultures pending. Lactic improved. Cont abx. 4. Rhabdo - CPK worsened today, increase LR to 200 ml/hr, repeat CPK tomorrow. 5. Fecal impaction - Having diarrhea around it. Will reevaluate today. 6. NSTEMI - Trop trended down, stop trending. Likely elevated in setting of sepsis, christopher, rhabdo. Denies chest pain. No stemi on EKG. DVT: Will not give lovenox due to mildly low platelets. Review Statement Review Statement: I have personally discussed and reviewed the patient's visit/currently labs/imaging/decision making with Dr. Coronel, my supervising attending. Greater that 50 minutes spent with patient, 50% of the time spent with this patient was devoted to counseling and coordination of care.
[2024-04-14 05:20] LABS: BASOPHILS % (AUTO) 0.2 % (0.0-3.0); EOSINOPHILS % (AUTO) 0.6 % (0.0-7.0); HEMATOCRIT 37.5 % (42.0-52.0); HEMOGLOBIN 12.4 g/dl (14.0-18.0); IMMATURE GRANULOCYTE % (AUTO) 0.2 % (0.0-5.0); LYMPHOCYTES # (AUTO) 0.7 K/uL (0.60-3.4); MEAN CORPUSCULAR HEMOGLOBIN 27.3 pg (27.0-31.0); MEAN CORPUSCULAR HGB CONC 33.1 (31.8-35.4); MEAN CORPUSCULAR VOLUME 82.6 fl (80.0-94.0); MONOCYTES # (AUTO) 0.5 K/uL (0.4-2.0); MONOCYTES % (AUTO) 11.4 (0-10); NEUTROPHILS # (AUTO) 3.4 K/ul (2.0-6.9); NEUTROPHILS % (AUTO) 72.6 % (42.2-75.2); RDW COEFFICIENT OF VARIATION 13.6 % (11.6-14.8); RED BLOOD COUNT 4.54 10^6/ul (4.70-6.10); WHITE BLOOD COUNT 4.74 K/ul (4.2-10.2)
[2024-04-14 05:24] LABS: PLATELET COUNT 76 10^3/uL (140-440)
[2024-04-14 05:30] LABS: ALANINE AMINOTRANSFERASE 61.5 U/L (0-50); ALBUMIN 3.02 g/dL (3.5-5.0); ALKALINE PHOSPHATASE 43.8 U/L (56-119); BILIRUBIN,TOTAL 1.63 mg/dL (0.2-1.3); CALCIUM 8.45 mg/dL (8.4-10.2); CARBON DIOXIDE 24.7 mmol/L (22-30.0); CHLORIDE 105.2 mmol/L (98-107); GLUCOSE 96.7 mg/dL (74-106); POTASSIUM 4.15 mmol/L (3.5-5.1); SODIUM 134.6 mmol/L (134.5-145); TOTAL PROTEIN 5.41 g/dL (6.3-8.2)
[2024-04-14 05:56] LABS: BLOOD UREA NITROGEN 27.7 mg/dL (9-20); CREATINE KINASE 2814.7 U/L (55-170)
[2024-04-14 06:37] LABS: CREATINE KINASE MB 5.83 ng/ml (0.0-2.38)
[2024-04-14] MEDS ORDERED: ZESTRIL PO SCH (09:00)
--- NOTE | 2024-04-14 09:21 | DI ---
EXAM: SUPINE ABDOMINAL RADIOGRAPH. HISTORY: Constipation. COMPARISON: 04/12/2024. FINDINGS: Urinary catheter present. There is mild gaseous distension of the large bowel. Decrease stool burden since the prior study. No dilated small bowel loops are seen. No masses identified. L eft nephrolithiasis present. No acute osseous abnormality identified. Lung bases are clear. IMPRESSION: 1. Decreased colonic stool burden. 2. Left nephrolithiasis.
[2024-04-14] MEDS: LACTATED RINGERS 1,000 ML IV SCH (10:19)
[2024-04-14] MEDS: ZESTRIL PO SCH (10:20)
--- NOTE | 2024-04-14 10:57 | PCM.PROG ---
Date/Time Seen Date Seen by Provider: 04/14/24 Time Seen by Provider: 08:30 Provider Provider[facility] Chief Complaint Chief Complaint: SEPSIS,RHABDOMYOLYSIS,CHRISTOPHER Subjective Subjective: Patient is alert and conversational today. Labs overall improved. Vitals improved. KUB this morning showing improved constipation. Pt has had multiple BMs. Yesterday afternoon patient's home health worker spoke with nurse regarding him being unsafe at home. States they've been having to feed him, etc lately. Reviewing patient's PCP notes they have been feeling he is unsafe for some time now. maintenance worker was able to reach out to sons who also feel he is unsafe at home. MMSE performed today by this provider. Objective Appearance: Positive No Apparent Distress and Other (+Alert, sitting up in bed, more conversational. ) Chest/Lungs: Positive Clear to Auscultation Bilaterally; Negative Rales, Rhonci or Wheezes Heart: Positive RRR GI/: Positive Soft, Nontender, Bowel Sounds Normal and No Distention Neurological: Positive Cranial Nerves Intact, Alert, Disorinted (oriented to person and place ([place], but not hospital), not time ) and Other (+generalized weakness ) Vital Signs Vital Signs: Vital Signs: Last 24 Hours 04/13/24 11:00 04/13/24 12:00 04/13/24 12:59 Temperature Temperature Source Pulse Rate Respiratory Rate Blood Pressure Blood Pressure Mean Blood Pressure Location Blood Pressure Position O2 Sat by Pulse Oximetry Oxygen Delivery Method Room Air Room Air Room Air Oxygen Flow Rate Telemetry Type Telemetry Monitoring Telemetry Heart Rate EKG NE Interval EKG QRS Interval Telemetry Strip Reading 04/13/24 13:00 04/13/24 13:28 04/13/24 14:00 Temperature Temperature Source Pulse Rate Respiratory Rate Blood Pressure Blood Pressure Mean Blood Pressure Location Blood Pressure Position O2 Sat by Pulse Oximetry Oxygen Delivery Method Room Air Room Air Oxygen Flow Rate Telemetry Type Remote Telemetry Telemetry Monitoring Continues Telemetry Heart Rate 102 H EKG NE Interval 0.17 EKG QRS Interval 0.[address] 04/13/24 14:00 04/13/24 17:48 04/13/24 19:00 Temperature 99.2 F 99.1 F Temperature Source Temporal Artery Scan Temporal Artery Scan Pulse Rate 113 H 108 H Respiratory Rate 16 18 Blood Pressure 150/77 H 147/97 H Blood Pressure Mean 101 113 Blood Pressure Location Right Arm Right Arm Blood Pressure Position Sitting O2 Sat by Pulse Oximetry 95 97 Oxygen Delivery Method Room Air Room Air Oxygen Flow Rate Telemetry Type Remote Telemetry Telemetry Monitoring Continues Telemetry Heart Rate 91 EKG NE Interval 0.16 EKG QRS Interval 0.07 Telemetry Strip Reading SR 04/13/24 19:35 04/13/24 20:00 04/13/24 21:15 Temperature 98.7 F Temperature Source Temporal Artery Scan Pulse Rate 105 H Respiratory Rate 20 Blood Pressure 144/91 H Blood Pressure Mean 108 Blood Pressure Location Right Arm Blood Pressure Position Supine O2 Sat by Pulse Oximetry 96 Oxygen Delivery Method Room Air Nasal Cannula Room Air Oxygen Flow Rate 2 Telemetry Type Telemetry Monitoring Telemetry Heart Rate EKG NE Interval EKG QRS Interval Telemetry Strip [place] 04/14/24 01:00 04/14/24 02:00 04/14/24 05:04 Temperature 97.7 F 98.8 F Temperature Source Temporal Artery Scan Temporal Artery Scan Pulse Rate 90 104 H Respiratory Rate 18 18 Blood Pressure 143/87 H 134/86 Blood Pressure Mean 105 102 Blood Pressure Location Right Arm Right Arm Blood Pressure Position Supine Supine O2 Sat by Pulse Oximetry 95 95 Oxygen Delivery Method Room Air Room Air Oxygen Flow Rate Telemetry Type Remote Telemetry Telemetry Monitoring Continues Telemetry Heart Rate 100 EKG NE Interval 0.16 EKG QRS Interval 0.06 Telemetry Strip [place] 04/14/24 05:32 04/14/24 10:00 04/14/24 10:00 Temperature 98.6 F Temperature Source Temporal Artery Scan Pulse Rate 99 Respiratory Rate 17 Blood Pressure 156/98 H Blood Pressure Mean 117 Blood Pressure Location Right Arm Blood Pressure Position Supine O2 Sat by Pulse Oximetry 95 Oxygen Delivery Method Room Air Room Air Room Air Oxygen Flow Rate Telemetry Type Telemetry Monitoring Telemetry Heart Rate EKG NE Interval EKG QRS Interval Telemetry Strip Reading Lab Results Lab Results: Lab Results: Last 24 Hours 04/14/24 04:51 WBC 4.74 RBC 4.54 L Hgb 12.4 L Hct 37.5 L MCV 82.6 MCH 27.3 MCHC 33.1 RDW Coeff of [place] 13.6 Plt Count 76 L D Immature Gran % (Auto) 0.2 Neut % (Auto) 72.6 Lymph % (Auto) 15.0 [place] % (Auto) 11.4 H Eos % (Auto) 0.6 Baso % (Auto) 0.2 Neut # (Auto) 3.4 Lymph # (Auto) 0.7 [place] # (Auto) 0.5 Eos # (Auto) 0.0 Baso # (Auto) 0.0 Immature Gran # (Auto) 0.0 Sodium 134.6 Potassium 4.15 Chloride 105.2 Carbon Dioxide 24.7 Anion Gap 8.85 BUN 27.7 H D Creatinine 1.00 Estimated GFR (MDRD) 75.00 BUN/Creatinine Ratio 27.70 Glucose 96.7 Calcium 8.45 Total Bilirubin 1.63 H AST 197.0 H D ALT 61.5 H Alkaline Phosphatase 43.8 L D Total Creatine Kinase 2814.7 H CK-MB (CK-2) 5.830 H* CK-MB (CK-2) % 0.2000 Total Protein 5.41 L Albumin 3.02 L Globulin 2.39 Albumin/Globulin Ratio 1.26 Additional Comments Additional Comments: I have independently reviewed and interpreted the labs/EKGs/imaging ordered during this hospital stay. I have reviewed outside records that are available in our EMR that pertain to medical stay including imaging/notes/labs from previous visits. EXAM: SUPINE ABDOMINAL RADIOGRAPH. HISTORY: Constipation. COMPARISON: 04/12/2024. FINDINGS: Urinary catheter present. There is mild gaseous distension of the large bowel. Decrease stool burden since the prior study. No dilated small bow el loops are seen. No masses identified. Left nephrolithiasis present. No acute osseous abnormality identified. Lung bases are clear. IMPRESSION: 1. Decreased colonic stool burden. 2. Left nephrolithiasis. Active Medications Active Medications: Medications Generic Name Dose Route Start Last Admin Trade Name Freq PRN Reason Stop Dose Admin Acetaminophen 650 mg 04/12/24 12:50 Acetaminophen 325 Mg Tablet PO Q4H PRN Mild Pain Metronidazole 500 mg in 100 mls @ 100 mls/hr 04/12/24 14:30 04/14/24 05:03 Flagyl 500 Mg/100 Ml IV 04/15/24 14:29 100 mls/hr Q8HR RAJWINDER Administration CEFTRIAXONE/D5W 1 GM PREMIX 1 gm in 50 mls @ 100 mls/hr 04/13/24 09:00 04/14/24 10:19 Rocephin 1 Gm/50 Ml D5w IV 04/16/24 08:59 100 mls/hr DAILY RAJWINDER Administration Lactated Ringer's 1,000 mls @ 100 mls/hr 04/14/24 08:35 04/14/24 10:19 Lactated Ringers IV 100 mls/hr .Q10H RAJWINDER Administration Lisinopril 20 mg 04/14/24 09:00 04/14/24 10:20 Lisinopril 10 Mg Tablet PO 20 mg DAILY RAJWINDER Administration Memantine 10 mg 04/13/24 09:00 04/14/24 10:19 Memantine Hcl 10 Mg Tablet PO 10 mg DAILY RAJWINDER Administration Nystatin 1 applic 04/12/24 21:00 04/14/24 10:19 Nystatin 15 Gm Cream TP 1 applic BID RAJWINDER Administration Sodium Chloride 1 syr 04/12/24 10:18 0.9% Sodium Chloride 10 Ml Disp.Syrin IVF PRN PRN To flush IV Plan Plan: 1. Acute colitis - With infection markers elevated, will cover with antibiotics. Continue flagyl and rocephin. Trend wbc and procal. 2. CHRISTOPHER stage I in setting of acute diarrhea, dehydration, and rhabdo - Improved. Received 2L in ER. Continue LR. 3. Sepsis in setting of acute colitis - Blood cultures pending. Lactic improved. Cont abx. 4. Rhabdo - Improving, continue fluids, turned down to 100 ml/hr today. Remove rubio. 5. Fecal impaction - Resolved. 6. NSTEMI - Trop trended down, stop trending. Likely elevated in setting of sepsis, christopher, rhabdo. Denies chest pain. No stemi on EKG. 7. Dementia - Pt has dementia listed as diagnosis and takes memantine. DVT: Will not give lovenox due to low platelets. Performed MMSE on patient today for which he scored 8/30 showing severe sy mptoms. Paper scanned into chart. Patient knew he was in [place] and the season for which he answered "Fall.....maybe winter". Otherwise was unable to recall any words given to remember. He could not read or write a sentence for me. He could not spell world backwards. He folded a piece of paper partially, giving him 1 point which was a stretch. But otherwise couldn't follow directions of what to do with it. Patient did state that "people have done this before to say I can't go home." He became upset afterwards saying he "just can't do these things since he had covid." He still feels he can take care of himself at home despite explaining to him that he has been requiring assistance with just drinking and eating. Discussed that home health services aren't capable of being available 24hrs/day to make sure his basic needs are met. Patient becomes upset by this. Patient is unable to tell me why he is in the hospital when it has been discussed daily with him. I mentioned taking out his catheter today and he states "I didn't even know I had one." I do not feel the patient has the mental capacity at this time to make decisions for himself or to care for himself, physically or mentally, safely at home without 24/hr care. I would recommend assigning a son as a surrogate decision maker to help with placement or arranging a safer living environment unless patient's mentation and physical capabilities improve, which seems unlikely as his PCP notes indicate this is ongoing, not an acute issue due to his acute illness. Review Statement Review Statement: I have personally discussed and reviewed the patient's visit/currently labs/imaging/decision making with Dr. Coronel, my supervising attending. Greater that 50 minutes spent with patient, 50% of the time spent with this patient was devoted to counseling and coordination of care.
[2024-04-15] MEDS: ATIVAN IVP STA (03:15)
[2024-04-15 05:34] LABS: BASOPHILS % (AUTO) 0.4 % (0.0-3.0); EOSINOPHILS # (AUTO) 0.1 K/ul (0.0-0.7); EOSINOPHILS % (AUTO) 1.3 % (0.0-7.0); HEMATOCRIT 39.9 % (42.0-52.0); HEMOGLOBIN 13.2 g/dl (14.0-18.0); IMMATURE GRANULOCYTE % (AUTO) 0.4 % (0.0-5.0); LYMPHOCYTES # (AUTO) 0.5 K/uL (0.60-3.4); LYMPHOCYTES % (AUTO) 11.5 (10.0-50.0); MEAN CORPUSCULAR HEMOGLOBIN 26.7 pg (27.0-31.0); MEAN CORPUSCULAR HGB CONC 33.1 (31.8-35.4); MEAN CORPUSCULAR VOLUME 80.8 fl (80.0-94.0); MONOCYTES # (AUTO) 0.4 K/uL (0.4-2.0); MONOCYTES % (AUTO) 8.9 (0-10); NEUTROPHILS # (AUTO) 3.6 K/ul (2.0-6.9); NEUTROPHILS % (AUTO) 77.5 % (42.2-75.2); PLATELET COUNT 91 10^3/uL (140-440); RDW COEFFICIENT OF VARIATION 13.4 % (11.6-14.8); RED BLOOD COUNT 4.94 10^6/ul (4.70-6.10); WHITE BLOOD COUNT 4.61 K/ul (4.2-10.2)
[2024-04-15 05:47] LABS: ALANINE AMINOTRANSFERASE 64.2 U/L (0-50); ALBUMIN 3.28 g/dL (3.5-5.0); ALKALINE PHOSPHATASE 43.2 U/L (56-119); ASPARTATE AMINO TRANSFERASE 141.1 U/L (17-59); BILIRUBIN,TOTAL 1.42 mg/dL (0.2-1.3); BLOOD UREA NITROGEN 17.5 mg/dL (9-20); CALCIUM 8.3 mg/dL (8.4-10.2); CARBON DIOXIDE 21.3 mmol/L (22-30.0); CHLORIDE 104.1 mmol/L (98-107); CREATINE KINASE 953.7 U/L (55-170); CREATININE 0.79 mg/dL (0.60-1.10); GLUCOSE 96.4 mg/dL (74-106); POTASSIUM 3.54 mmol/L (3.5-5.1); TOTAL PROTEIN 5.7 g/dL (6.3-8.2)
[2024-04-15 06:04] LABS: CREATINE KINASE MB 5.63 ng/ml (0.0-2.38)
--- NOTE | 2024-04-15 09:46 | PCM.PROG ---
Date/Time Seen Date Seen by Provider: 04/15/24 Time Seen by Provider: 08:00 Provider Provider: KATIE ESPINO PA-C, [facility] Chief Complaint Chief Complaint: SEPSIS,RHABDOMYOLYSIS,CHRISTOPHER Subjective Subjective: Confused and trying to get out of bed today. States it is December and he is at his girlfriends house. Rubio was removed yesterday. Patient required to be straight cathed around 3 am. Unable to void since. Objective Appearance: Positive No Apparent Distress Chest/Lungs: Positive Symmetrical With Equal Breath Sounds, Clear to Auscultation Bilaterally and Good Air Movement all 4 Lung Ruiz Heart: Positive RRR and Pulses Normal GI/: Positive Soft, Nontender, Bowel Sounds Normal and No Distention Musculoskeletal: Positive Not Examined Neurological: Positive Sensation Intact, Motor intact, Alert and Disorinted Vital Signs Vital Signs: Vital Signs: Last 24 Hours 04/14/24 10:00 04/14/24 10:00 04/14/24 13:00 Temperature 98.6 F Temperature Source Temporal Artery Scan Pulse Rate 99 Respiratory Rate 17 Blood Pressure 156/98 H Blood Pressure Mean 117 Blood Pressure Location Right Arm Blood Pressure Position Supine O2 Sat by Pulse Oximetry 95 Oxygen Delivery Method Room Air Room Air Oxygen Flow Rate Telemetry Type Remote Telemetry Telemetry Monitoring Continues Telemetry Heart Rate 98 EKG SD Interval 0.16 EKG QRS Interval 0.06 Telemetry Strip Reading SR 04/14/24 14:00 04/14/24 14:00 04/14/24 18:00 Temperature 99 F 98.7 F Temperature Source Temporal Artery Scan Temporal Artery Scan Pulse Rate 89 90 Respiratory Rate 20 18 Blood Pressure 154/102 H 163/90 H Blood Pressure Mean 119 114 Blood Pressure Location Right Arm Right Arm Blood Pressure Position Supine Sitting O2 Sat by Pulse Oximetry 95 96 Oxygen Delivery Method Room Air Room Air Room Air Oxygen Flow Rate Telemetry Type Telemetry Monitoring Telemetry Heart Rate EKG SD Interval EKG QRS Interval Telemetry Strip Reading 04/14/24 19:00 04/14/24 19:46 04/14/24 20:00 Temperature Temperature Source Pulse Rate Respiratory Rate Blood Pressure Blood Pressure Mean Blood Pressure Location Blood Pressure Position O2 Sat by Pulse Oximetry Oxygen Delivery Method Room Air Nasal Cannula Oxygen Flow Rate 2 Telemetry Type Remote Telemetry Telemetry Monitoring Continues Telemetry Heart Rate 87 EKG SD Interval 0.14 EKG QRS Interval 0.14 H Telemetry Strip Reading NSR 04/14/24 21:01 04/15/24 01:00 04/15/24 02:00 Temperature 99.0 F 98.2 F Temperature Source Temporal Artery Scan Temporal Artery Scan Pulse Rate 79 87 Respiratory Rate 18 16 Blood Pressure 148/96 H 142/97 H Blood Pressure Mean 113 112 Blood Pressure Location Left Arm Right Arm Blood Pressure Position Supine Supine O2 Sat by Pulse Oximetry 95 95 Oxygen Delivery Method Room Air Nasal Cannula Oxygen Flow Rate 2 Telemetry Type Remote Telemetry Telemetry Monitoring Continues Telemetry Heart Rate 74 EKG SD Interval 0.14 EKG QRS Interval 0.08 Telemetry Strip Reading NSR 04/15/24 05:01 04/15/24 05:37 Temperature 98.4 F Temperature Source Temporal Artery Scan Pulse Rate 102 H Respiratory Rate 18 Blood Pressure 96/58 L Blood Pressure Mean 70 Blood Pressure Location Left Arm Blood Pressure Position Supine O2 Sat by Pulse Oximetry 95 Oxygen Delivery Method Nasal Cannula Room Air Oxygen Flow Rate 2 Telemetry Type Telemetry Monitoring Telemetry Heart Rate EKG SD Interval EKG QRS Interval Telemetry Strip Reading Lab Results Lab Results: Lab Results: Last 24 Hours 04/15/24 05:20 WBC 4.61 RBC 4.94 Hgb 13.2 L Hct 39.9 L MCV 80.8 MCH 26.7 L MCHC 33.1 RDW Coeff of Domingo 13.4 Plt Count 91 L Immature Gran % (Auto) 0.4 Neut % (Auto) 77.5 H Lymph % (Auto) 11.5 [place] % (Auto) 8.9 Eos % (Auto) 1.3 Baso % (Auto) 0.4 Neut # (Auto) 3.6 Lymph # (Auto) 0.5 L [place] # (Auto) 0.4 Eos # (Auto) 0.1 Baso # (Auto) 0.0 Immature Gran # (Auto) 0.0 Sodium 135.0 Potassium 3.54 Chloride 104.1 Carbon Dioxide 21.3 L Anion Gap 13.14 BUN 17.5 Creatinine 0.79 Estimated GFR (MDRD) 99.00 BUN/Creatinine Ratio 22.15 Glucose 96.4 Calcium 8.30 L Total Bilirubin 1.42 H AST 141.1 H D ALT 64.2 H Alkaline Phosphatase 43.2 L Total Creatine Kinase 953.7 H CK-MB (CK-2) 5.630 H* CK-MB (CK-2) % 0.5900 Total Protein 5.70 L Albumin 3.28 L Globulin 2.42 Albumin/Globulin Ratio 1.35 Procalcitonin 0.43 H Additional Comments Additional Comments: I have independently reviewed and interpreted the labs/EKGs/imaging ordered during this hospital stay. I have reviewed outside records that are available in our EMR that pertain to medical stay including imaging/notes/labs from previous visits. Active Medications Active Medications: Medications Generic Name Dose Route Start Last Admin Trade Name Freq PRN Reason Stop Dose Admin Acetaminophen 650 mg 04/12/24 12:50 Acetaminophen 325 Mg Tablet PO Q4H PRN Mild Pain Metronidazole 500 mg in 100 mls @ 100 mls/hr 04/12/24 14:30 04/15/24 05:05 Flagyl 500 Mg/100 Ml IV 04/15/24 14:29 100 mls/hr Q8HR RAJWINDER Administration CEFTRIAXONE/D5W 1 GM PREMIX 1 gm in 50 mls @ 100 mls/hr 04/13/24 09:00 04/15/24 09:26 Rocephin 1 Gm/50 Ml D5w IV 04/16/24 08:59 100 mls/hr DAILY RAJWINDER Administration Lactated Ringer's 1,000 mls @ 100 mls/hr 04/14/24 08:35 04/15/24 09:26 Lactated Ringers IV 100 mls/hr .Q10H RAJWINDER Administration Lisinopril 20 mg 04/14/24 09:00 04/15/24 09:25 Lisinopril 10 Mg Tablet PO 20 mg DAILY RAJWINDER Administration Memantine 10 mg 04/13/24 09:00 04/15/24 09:25 Memantine Hcl 10 Mg Tablet PO 10 mg DAILY RAJWINDER Administration Nystatin 1 applic 04/12/24 21:00 04/15/24 09:26 Nystatin 15 Gm Cream TP 1 applic BID RAJWINDER Administration Sodium Chloride 1 syr 04/12/24 10:18 0.9% Sodium Chloride 10 Ml Disp.Syrin IVF PRN PRN To flush IV Plan Plan: 1. Acute colitis - With infection markers elevated, will cover with antibiotics. Continue flagyl and rocephin today. WBC count and procal improving 2. CHRISTOPHER stage I in setting of acute diarrhea, dehydration, and rhabdo - Improved. Received 2L in ER. Continue LR. 3. Sepsis in setting of acute colitis - Blood cultures prelim negative x 24 hours. Lactic improved. Cont abx. 4. Rhabdo - Improving, continue fluids, continue 100 ml/hr. 5. Urinary Retention - unable to void, rubio placed, urology referral upon dc 6. Fecal impaction - Resolved. 7. NSTEMI - Trop trended down, stop trending. Likely elevated in setting of sepsis, christopher, rhabdo. Denies chest pain. No stemi on EKG. 8. Dementia - Pt has dementia listed as diagnosis and takes memantine. 9. Thrombocytopenia - hx of this back in June, improving, trend and monitor DVT: Will not give lovenox due to low platelets. Disposition: Unsafe to discharge due to patient's physical and mental capabilities. Agree with previous provider regarding need for surrogate decision maker to help with placement and arrange safer living environment. Review Statement Review Statement: I have personally discussed and reviewed the patient's visit/currently labs/imaging/decision making with Dr. Coronel, my supervising attending. Greater that 50 minutes spent with patient, 50% of the time spent with this patient was devoted to counseling and coordination of care.
[2024-04-15] MEDS: ATIVAN IVP ONE (14:41)
[2024-04-15] MEDS: ZYPREXA PO SCH (20:09)
[2024-04-16 05:17] LABS: BASOPHILS % (AUTO) 0.4 % (0.0-3.0); EOSINOPHILS # (AUTO) 0.1 K/ul (0.0-0.7); EOSINOPHILS % (AUTO) 1.5 % (0.0-7.0); HEMATOCRIT 37.9 % (42.0-52.0); HEMOGLOBIN 12.3 g/dl (14.0-18.0); IMMATURE GRANULOCYTE % (AUTO) 0.4 % (0.0-5.0); LYMPHOCYTES # (AUTO) 0.7 K/uL (0.60-3.4); LYMPHOCYTES % (AUTO) 13.8 (10.0-50.0); MEAN CORPUSCULAR HEMOGLOBIN 26.6 pg (27.0-31.0); MEAN CORPUSCULAR HGB CONC 32.5 (31.8-35.4); MEAN CORPUSCULAR VOLUME 81.9 fl (80.0-94.0); MONOCYTES # (AUTO) 0.4 K/uL (0.4-2.0); MONOCYTES % (AUTO) 9.1 (0-10); NEUTROPHILS # (AUTO) 3.5 K/ul (2.0-6.9); NEUTROPHILS % (AUTO) 74.8 % (42.2-75.2); PLATELET COUNT 85 10^3/uL (140-440); RDW COEFFICIENT OF VARIATION 13.4 % (11.6-14.8); RED BLOOD COUNT 4.63 10^6/ul (4.70-6.10); WHITE BLOOD COUNT 4.71 K/ul (4.2-10.2)
[2024-04-16 05:32] LABS: ALBUMIN 2.84 g/dL (3.5-5.0); ALKALINE PHOSPHATASE 35.1 U/L (56-119); ASPARTATE AMINO TRANSFERASE 93.6 U/L (17-59); BILIRUBIN,TOTAL 0.95 mg/dL (0.2-1.3); BLOOD UREA NITROGEN 14.8 mg/dL (9-20); CALCIUM 7.91 mg/dL (8.4-10.2); CARBON DIOXIDE 26.2 mmol/L (22-30.0); CHLORIDE 104.3 mmol/L (98-107); CREATININE 0.73 mg/dL (0.60-1.10); GLUCOSE 84.9 mg/dL (74-106); POTASSIUM 3.43 mmol/L (3.5-5.1); SODIUM 134.6 mmol/L (134.5-145); TOTAL PROTEIN 5.2 g/dL (6.3-8.2)
[2024-04-16 05:48] LABS: CREATINE KINASE MB 4.5 ng/ml (0.0-2.38)
[2024-04-16] MEDS: K-DUR PO ONE (08:40)
--- NOTE | 2024-04-16 12:51 | PCM.PROG ---
Date/Time Seen Date Seen by Provider: 04/16/24 Time Seen by Provider: 08:45 Provider Provider: NATHALY MARIE, [facility] Chief Complaint Chief Complaint: SEPSIS,RHABDOMYOLYSIS,CHRISTOPHER Subjective Subjective: Resting quietly in bed with eyes closed. Had episode yesterday afternoon of agitation and required x1 dose of ativan. Started on PO olanzapine to help with symptoms. Calm this am. Objective Appearance: Positive No Apparent Distress Chest/Lungs: Positive Symmetrical With Equal Breath Sounds, Clear to Auscultation Bilaterally and Good Air Movement all 4 Lung Ruiz Heart: Positive RRR and Pulses Normal GI/: Positive Soft, Nontender, Bowel Sounds Normal and No Distention Musculoskeletal: Positive Not Examined Neurological: Positive Sensation Intact, Motor intact and Disorinted Vital Signs Vital Signs: Vital Signs: Last 24 Hours 04/15/24 13:00 04/15/24 13:57 04/15/24 14:00 Temperature 98.4 F Temperature Source Tympanic Pulse Rate 96 Respiratory Rate 18 Blood Pressure 131/100 H Blood Pressure Mean 110 Blood Pressure Location Left Arm Blood Pressure Position Sitting O2 Sat by Pulse Oximetry 98 Oxygen Delivery Method Room Air Room Air Oxygen Flow Rate Telemetry Strip Reading refused 04/15/24 18:00 04/15/24 19:10 04/15/24 20:00 Temperature 98.2 F Temperature Source Temporal Artery Scan Pulse Rate 88 Respiratory Rate 18 Blood Pressure 132/96 H Blood Pressure Mean 108 Blood Pressure Location Right Arm Blood Pressure Position Supine O2 Sat by Pulse Oximetry 95 97 Oxygen Delivery Method Room Air Room Air Nasal Cannula Oxygen Flow Rate 2 Telemetry Strip Reading 04/15/24 20:33 04/16/24 05:08 04/16/24 05:14 Temperature 98.2 F 97.9 F Temperature Source Temporal Artery Scan Temporal Artery Scan Pulse Rate 98 86 Respiratory Rate 18 18 Blood Pressure 146/84 H 143/98 H Blood Pressure Mean 104 113 Blood Pressure Location Right Arm Right Arm Blood Pressure Position Supine Supine O2 Sat by Pulse Oximetry 96 98 Oxygen Delivery Method Room Air Room Air Room Air Oxygen Flow Rate Telemetry Strip Reading 04/16/24 07:42 04/16/24 10:00 04/16/24 10:00 Temperature 98.2 F Temperature Source Temporal Artery Scan Pulse Rate 79 Respiratory Rate 18 Blood Pressure 145/95 H Blood Pressure Mean 111 Blood Pressure Location Right Arm Blood Pressure Position Supine O2 Sat by Pulse Oximetry 96 95 Oxygen Delivery Method Nasal Cannula Room Air Room Air Oxygen Flow Rate 2 Telemetry Strip Reading Lab Results Lab Results: Lab Results: Last 24 Hours 04/16/24 05:07 WBC 4.71 RBC 4.63 L Hgb 12.3 L Hct 37.9 L MCV 81.9 MCH 26.6 L MCHC 32.5 RDW Coeff of Domingo 13.4 Plt Count 85 L Immature Gran % (Auto) 0.4 Neut % (Auto) 74.8 Lymph % (Auto) 13.8 [place] % (Auto) 9.1 Eos % (Auto) 1.5 Baso % (Auto) 0.4 Neut # (Auto) 3.5 Lymph # (Auto) 0.7 [place] # (Auto) 0.4 Eos # (Auto) 0.1 Baso # (Auto) 0.0 Immature Gran # (Auto) 0.0 Sodium 134.6 Potassium 3.43 L Chloride 104.3 Carbon Dioxide 26.2 Anion Gap 7.53 BUN 14.8 Creatinine 0.73 Estimated GFR (MDRD) 108.00 BUN/Creatinine Ratio 20.27 Glucose 84.9 Calcium 7.91 L Total Bilirubin 0.95 AST 93.6 H D ALT 57.0 H Alkaline Phosphatase 35.1 L Total Creatine Kinase 540.0 H CK-MB (CK-2) 4.500 H CK-MB (CK-2) % 0.8300 Total Protein 5.20 L Albumin 2.84 L Globulin 2.36 Albumin/Globulin Ratio 1.20 Procalcitonin 0.25 H Additional Comments Additional Comments: I have independently reviewed and interpreted the labs/EKGs/imaging ordered during this hospital stay. I have reviewed outside records that are available in our EMR that pertain to medical stay including imaging/notes/labs from previous visits. Active Medications Active Medications: Medications Generic Name Dose Route Start Last Admin Trade Name Freq PRN Reason Stop Dose Admin Acetaminophen 650 mg 04/12/24 12:50 Acetaminophen 325 Mg Tablet PO Q4H PRN Mild Pain Lactated Ringer's 1,000 mls @ 100 mls/hr 04/14/24 08:35 04/16/24 04:53 Lactated Ringers IV 100 mls/hr .Q10H RAJWINDER Administration Lisinopril 20 mg 04/14/24 09:00 04/16/24 08:37 Lisinopril 10 Mg Tablet PO 20 mg DAILY RAJWINDER Administration Memantine 10 mg 04/13/24 09:00 04/16/24 08:37 Memantine Hcl 10 Mg Tablet PO 10 mg DAILY RAJWINDER Administration Nystatin 1 applic 04/12/24 21:00 04/16/24 08:42 Nystatin 15 Gm Cream TP 1 applic BID RAJWINDER Administration Olanzapine 2.5 mg 04/15/24 21:00 04/16/24 08:37 Olanzapine 2.5 Mg Tablet PO 2.5 mg BID RAJWINDER Administration Sodium Chloride 1 syr 04/12/24 10:18 0.9% Sodium Chloride 10 Ml Disp.Syrin IVF PRN PRN To flush IV Plan Plan: 1. Acute colitis - antibiotic course completed. Diarrhea resolved, WBC count and procal improving 2. CHRISTOPHER stage I in setting of acute diarrhea, dehydration, and rhabdo - Resolved 3. Sepsis in setting of acute colitis - Ruled out 4. Rhabdo - Improving, continue fluids, decrease fluids to 50 ml/hr. 5. Urinary Retention - unable to void, rubio placed, urology referral upon dc 6. Fecal impaction - Resolved 7. NSTEMI - Trop trended down, stop trending. Likely elevated in setting of sepsis, christopher, rhabdo. Denies chest pain. No stemi on EKG. 8. Dementia - Pt has dementia listed as diagnosis and takes memantine, added olanzapine for agitation 9. Thrombocytopenia - hx of this back in June, improving - may be due to acute illness, trend and monitor DVT: Will not give lovenox due to low platelets. Disposition: Unsafe to discharge due to patient's physical and mental capabilities. Agree with previous provider regarding need for surrogate decision maker to help with placement and arrange safer living environment. Glenis, barn worker, spoke with son today regarding need for discharge plans. Agreeable to SNF placement. Agreeable to sign documentation as patient's surrogate decision maker. Plans to come this evening to sign paperwork and visit. Review Statement Review Statement: I have personally discussed and reviewed the patient's visit/currently labs/ imaging/decision making with Dr. Coronel, my supervising attending. Greater that 50 minutes spent with patient, 50% of the time spent with this patient was devoted to counseling and coordination of care.
[2024-04-16] MEDS: LACTATED RINGERS 1,000 ML IV SCH (14:06)
[2024-04-17 05:21] LABS: BASOPHILS % (AUTO) 0.5 % (0.0-3.0); EOSINOPHILS # (AUTO) 0.1 K/ul (0.0-0.7); EOSINOPHILS % (AUTO) 1.9 % (0.0-7.0); HEMATOCRIT 39.7 % (42.0-52.0); HEMOGLOBIN 13.2 g/dl (14.0-18.0); IMMATURE GRANULOCYTE % (AUTO) 0.2 % (0.0-5.0); LYMPHOCYTES # (AUTO) 0.8 K/uL (0.60-3.4); LYMPHOCYTES % (AUTO) 19.1 (10.0-50.0); MEAN CORPUSCULAR HEMOGLOBIN 26.8 pg (27.0-31.0); MEAN CORPUSCULAR HGB CONC 33.2 (31.8-35.4); MEAN CORPUSCULAR VOLUME 80.7 fl (80.0-94.0); MONOCYTES # (AUTO) 0.5 K/uL (0.4-2.0); NEUTROPHILS # (AUTO) 2.8 K/ul (2.0-6.9); NEUTROPHILS % (AUTO) 67.3 % (42.2-75.2); PLATELET COUNT 105 10^3/uL (140-440); RDW COEFFICIENT OF VARIATION 13.2 % (11.6-14.8); RED BLOOD COUNT 4.92 10^6/ul (4.70-6.10); WHITE BLOOD COUNT 4.19 K/ul (4.2-10.2)
[2024-04-17 05:40] LABS: ALANINE AMINOTRANSFERASE 49.5 U/L (0-50); ALBUMIN 2.97 g/dL (3.5-5.0); ALKALINE PHOSPHATASE 39.6 U/L (56-119); ASPARTATE AMINO TRANSFERASE 65.5 U/L (17-59); BILIRUBIN,TOTAL 0.73 mg/dL (0.2-1.3); BLOOD UREA NITROGEN 11.8 mg/dL (9-20); CALCIUM 8.05 mg/dL (8.4-10.2); CARBON DIOXIDE 26.3 mmol/L (22-30.0); CREATINE KINASE 343.8 U/L (55-170); CREATININE 0.73 mg/dL (0.60-1.10); GLUCOSE 99.6 mg/dL (74-106); POTASSIUM 3.37 mmol/L (3.5-5.1); SODIUM 137.5 mmol/L (134.5-145); TOTAL PROTEIN 5.34 g/dL (6.3-8.2)
[2024-04-17 05:55] LABS: CREATINE KINASE MB 2.65 ng/ml (0.0-2.38)
[2024-04-17] MEDS: TYLENOL PO PRN (08:27)
[2024-04-17] MEDS: K-DUR PO ONE (08:54)
--- NOTE | 2024-04-17 09:50 | PCM.PROG ---
Date/Time Seen Date Seen by Provider: 04/17/24 Time Seen by Provider: 08:30 Provider Provider: [facility]ALY MARIE, [facility] Chief Complaint Chief Complaint: SEPSIS,RHABDOMYOLYSIS,CHRISTOPHER Subjective Subjective: Wanting to go home today. Alert, disoriented. No complaints. Urine tea colored yesterday and more yellow today. Objective Appearance: Positive No Apparent Distress Chest/Lungs: Positive Symmetrical With Equal Breath Sounds, Clear to Auscultation Bilaterally and Good Air Movement all 4 Lung Ruiz Heart: Positive RRR and Pulses Normal GI/: Positive Soft, Nontender, Bowel Sounds Normal and No Distention Musculoskeletal: Positive Not Examined Neurological: Positive Sensation Intact, Motor intact, Reflexes Intact, Alert and Disorinted Vital Signs Vital Signs: Vital Signs: Last 24 Hours 04/16/24 10:00 04/16/24 10:00 04/16/24 13:48 Temperature 98.2 F 99.0 F Temperature Source Temporal Artery Scan Temporal Artery Scan Pulse Rate 79 90 Respiratory Rate 18 18 Blood Pressure 145/95 H 143/77 H Blood Pressure Mean 111 99 Blood Pressure Location Right Arm Right Arm Blood Pressure Position Supine O2 Sat by Pulse Oximetry 96 95 95 Oxygen Delivery Method Room Air Room Air Room Air Oxygen Flow Rate 04/16/24 14:00 04/16/24 18:00 04/16/24 20:00 Temperature 98.7 F Temperature Source Temporal Artery Scan Pulse Rate 85 Respiratory Rate 18 Blood Pressure 118/90 Blood Pressure Mean 99 Blood Pressure Location Right Arm Blood Pressure Position Sitting O2 Sat by Pulse Oximetry 95 96 Oxygen Delivery Method Nasal Cannula Room Air Nasal Cannula Oxygen Flow Rate 2 04/16/24 20:00 04/16/24 22:00 04/17/24 02:00 Temperature 98.7 F 98.3 F Temperature Source Oral Temporal Artery Scan Pulse Rate 84 74 Respiratory Rate 16 22 H Blood Pressure 168/102 H 138/90 Blood Pressure Mean 124 106 Blood Pressure Location Right Arm Right Arm Blood Pressure Position Supine Supine O2 Sat by Pulse Oximetry 97 Oxygen Delivery Method Room Air Room Air Room Air Oxygen Flow Rate 04/17/24 05:36 04/17/24 05:56 04/17/24 09:39 Temperature 98.9 F Temperature Source Temporal Artery Scan Pulse Rate 80 Respiratory Rate 20 Blood Pressure 133/87 Blood Pressure Mean 102 Blood Pressure Location Right Arm Blood Pressure Position Supine O2 Sat by Pulse Oximetry 96 Oxygen Delivery Method Room Air Room Air Room Air Oxygen Flow Rate Lab Results Lab Results: Lab Results: Last 24 Hours 04/17/24 05:02 WBC 4.19 L RBC 4.92 Hgb 13.2 L Hct 39.7 L MCV 80.7 MCH 26.8 L MCHC 33.2 RDW Coeff of Domingo 13.2 Plt Count 105 L Immature Gran % (Auto) 0.2 Neut % (Auto) 67.3 Lymph % (Auto) 19.1 [place] % (Auto) 11.0 H Eos % (Auto) 1.9 Baso % (Auto) 0.5 Neut # (Auto) 2.8 Lymph # (Auto) 0.8 [place] # (Auto) 0.5 Eos # (Auto) 0.1 Baso # (Auto) 0.0 Immature Gran # (Auto) 0.0 Sodium 137.5 Potassium 3.37 L Chloride 107.0 Carbon Dioxide 26.3 Anion Gap 7.57 BUN 11.8 Creatinine 0.73 Estimated GFR (MDRD) 108.00 BUN/Creatinine Ratio 16.16 Glucose 99.6 Calcium 8.05 L Total Bilirubin 0.73 AST 65.5 H D ALT 49.5 Alkaline Phosphatase 39.6 L Total Creatine Kinase 343.8 H CK-MB (CK-2) 2.650 H CK-MB (CK-2) % 0.7700 Total Protein 5.34 L Albumin 2.97 L Globulin 2.37 Albumin/Globulin Ratio 1.25 Procalcitonin 0.18 H Additional Comments Additional Comments: I have independently reviewed and interpreted the labs/EKGs/imaging ordered during this hospital stay. I have reviewed outside records that are available in our EMR that pertain to medical stay including imaging/notes/labs from previous visits. Active Medications Active Medications: Medications Generic Name Dose Route Start Last Admin Trade Name Freq PRN Reason Stop Dose Admin Acetaminophen 650 mg 04/12/24 12:50 04/17/24 08:27 Acetaminophen 325 Mg Tablet PO 650 mg Q4H PRN Administration Mild Pain Lactated Ringer's 1,000 mls @ 50 mls/hr 04/16/24 13:49 04/16/24 14:06 Lactated Ringers IV 50 mls/hr .Q20H RAJWINDER Administration Lisinopril 20 mg 04/14/24 09:00 04/17/24 08:26 Lisinopril 10 Mg Tablet PO 20 mg DAILY RAJWINDER Administration Memantine 10 mg 04/13/24 09:00 04/17/24 08:27 Memantine Hcl 10 Mg Tablet PO 10 mg DAILY RAJWINDER Administration Nystatin 1 applic 04/12/24 21:00 04/17/24 08:34 Nystatin 15 Gm Cream TP 1 applic BID RAJWINDER Administration Olanzapine 2.5 mg 04/15/24 21:00 04/17/24 08:27 Olanzapine 2.5 Mg Tablet PO 2.5 mg BID RAJWINDER Administration Sodium Chloride 1 syr 04/12/24 10:18 0.9% Sodium Chloride 10 Ml Disp.Syrin IVF PRN PRN To flush IV Plan Plan: 1. Acute colitis - antibiotic course completed. Diarrhea resolved, WBC count and procal improving 2. CHRISTOPHER stage I in setting of acute diarrhea, dehydration, and rhabdo - Resolved 3. Sepsis in setting of acute colitis - Ruled out 4. Rhabdo - Improving, urine tea colored yesterday but more yellow today, continue fluids 50 ml/hr. 5. Urinary Retention - unable to void, rubio placed, urology referral upon dc 6. Fecal impaction - Resolved 7. NSTEMI - Trop trended down, stop trending. Likely elevated in setting of sepsis, christopher, rhabdo. Denies chest pain. No stemi on EKG. 8. Dementia - Pt has dementia listed as diagnosis and takes memantine, added olanzapine for agitation 9. Thrombocytopenia - hx of this back in June, improving - may be due to acute illness, trend and monitor DVT: Will not give lovenox due to low platelets. Disposition: Accepted to [facility] upon discharge. Anticipate discharge tomorrow after 1 more night of IV fluids. Review Statement Review Statement: I have personally discussed and reviewed the patient's visit/currently labs/imaging/decision making with Dr. Coronel, my supervising attending. Greater that 50 minutes spent with patient, 50% of the time spent with this patient was devoted to counseling and coordination of care.
[2024-04-17] MEDS ORDERED: PREDNISONE PO SCH (17:00)
[2024-04-18 05:21] LABS: BASOPHILS % (AUTO) 0.4 % (0.0-3.0); EOSINOPHILS # (AUTO) 0.2 K/ul (0.0-0.7); EOSINOPHILS % (AUTO) 3.8 % (0.0-7.0); HEMATOCRIT 38.4 % (42.0-52.0); HEMOGLOBIN 12.8 g/dl (14.0-18.0); IMMATURE GRANULOCYTE % (AUTO) 0.7 % (0.0-5.0); LYMPHOCYTES # (AUTO) 0.8 K/uL (0.60-3.4); LYMPHOCYTES % (AUTO) 18.1 (10.0-50.0); MEAN CORPUSCULAR HEMOGLOBIN 26.9 pg (27.0-31.0); MEAN CORPUSCULAR HGB CONC 33.3 (31.8-35.4); MEAN CORPUSCULAR VOLUME 80.7 fl (80.0-94.0); MONOCYTES # (AUTO) 0.5 K/uL (0.4-2.0); MONOCYTES % (AUTO) 10.1 (0-10); NEUTROPHILS % (AUTO) 66.9 % (42.2-75.2); PLATELET COUNT 120 10^3/uL (140-440); RDW COEFFICIENT OF VARIATION 13.3 % (11.6-14.8); RED BLOOD COUNT 4.76 10^6/ul (4.70-6.10); WHITE BLOOD COUNT 4.47 K/ul (4.2-10.2)
[2024-04-18 05:24] VITALS: RESP 16
[2024-04-18 05:36] LABS: ALANINE AMINOTRANSFERASE 43.5 U/L (0-50); ALBUMIN 2.86 g/dL (3.5-5.0); ALKALINE PHOSPHATASE 36.6 U/L (56-119); ASPARTATE AMINO TRANSFERASE 50.7 U/L (17-59); BILIRUBIN,TOTAL 0.74 mg/dL (0.2-1.3); BLOOD UREA NITROGEN 10.4 mg/dL (9-20); CALCIUM 8.11 mg/dL (8.4-10.2); CARBON DIOXIDE 24.5 mmol/L (22-30.0); CHLORIDE 106.4 mmol/L (98-107); CREATINE KINASE 230.3 U/L (55-170); CREATININE 0.75 mg/dL (0.60-1.10); GLUCOSE 106.9 mg/dL (74-106); POTASSIUM 3.44 mmol/L (3.5-5.1); SODIUM 136.3 mmol/L (134.5-145); TOTAL PROTEIN 5.37 g/dL (6.3-8.2)
[2024-04-18] MEDS: MEDROL DOSEPAK PO SCH (05:39)
[2024-04-18 05:51] LABS: CREATINE KINASE MB 2.18 ng/ml (0.0-2.38)
--- NOTE | 2024-04-18 08:27 | DCSUM ---
Admission Date Admission Date: 04/12/24 Discharge Date Discharge Date: 04/18/24 Admission Diagnosis Admission Diagnosis: 1. Acute colitis 2. CHRISTOPHER stage I in setting of acute diarrhea, dehydration, and rhabdo 3. Sepsis in setting of acute colitis 4. Rhabd 5. Fecal impaction 6. NSTEMI Discharge Diagnosis Discharge Diagnosis: 1. Acute colitis - Resolved 2. CHRISTOPHER stage I in setting of acute diarrhea, dehydration, and rhabdo - Resolved 3. Sepsis in setting of acute colitis - Ruled out 4. Rhabdo - Resolved 5. Urinary Retention - Resolved, rubio placed 6. Fecal impaction - Resolved 7. NSTEMI - Trop trended down, stop trending. Likely elevated in setting of sepsis, christopher, rhabdo. Denies chest pain. No stemi on EKG. 8. Dementia - Pt has dementia listed as diagnosis and takes memantine, added olanzapine for agitation 9. Thrombocytopenia - Improving, 120 today Hospital Provider Hospital Provider: NATHALY MARIE, [facility] Primary Care Physician Primary Care Physician: DONNIE MESSER PA-C Summary of History and Physical Summary of History and Physical: Patient is a 63 year old male with pmhx of cirrhosis, COPD, hypertension, history of dementia who presents for diarrhea. Per report, EMS was called due to a fall this morning. Patient did not want to come in to ER at that time. They were then called again about 30 minutes later because of severe diarrhea. He seemed clammy and diaphoretic. He was also hypotensive in the 80s. He complained of left neck pain from the fall. He had a mildly low O2 sat of 90% on RA. In ER was found to have elevated cr/bun from baseline, elevated cpk, mildly elevated trop, wbc, and procal. Lactic >5. He was given rocephin and [address] head, c spine negative. CXR negative. Admitted to med surg. Hospital Course Subjective: Patient was treated for acute colitis with a course of flagyl and rocephin. Diarrhea resolved. WBC count and procal improved. CHRISTOPHER resolved with fluid resuscitation as well as rhabdomyolysis. Sepsis work up completed and ruled out. blood cultures negative. Rubio placed initially due to AMS. It was pulled and patient was continuing to retain urine due to mental status. Rubio re-anchored and doing well. Urine went from tea colored to yellow clear. Fecal impaction present initially and resolved with multiple enemas and medications. NSTEMI present on admission. Trop trended down. Likely due to christopher and rhabdo. No stemi on EKG. No chest pain. Thrombocytopenia present throughout stay. Likely due to above. Platelets improved to 120 today on discharge. Had eczema area to L arm. Had prev treated with hydrocortisone without resolution. Started steroid dose pack in attempt to resolve. Patient had a combative episodes during stay due to worsening dementia. Required 2 doses of ativan IV. Started on PO zyprexa 2.5 mg bid and patient has been more calm and cooperative. He initially lived at home by himself with homemaker services. Mini mental exam completed by other provider with score of 8 indicating severe cognitive impairment. Deemed patient unsafe to return home alone. Son, Harvey, signed paperwork regarding healthcare surrogacy and is working on gaining guardianship. D/c to [facility] today. Appearance: No Apparent Distress and Alert HEENT: MMM, Supple and No JVD CVS: No Murmur Abdomen: Soft, Non-Tender and No Distention Respiratory: No Dyspnea Extremities: No Edema Vital Signs: Most Recent Vital Signs Temperature 97.9 F 04/18/24 05:23 Temperature Source Temporal Artery Scan 04/18/24 05:23 Temperature Source Oral 04/12/24 10:09 Pulse Rate 84 04/18/24 05:23 Respiratory Rate 16 04/18/24 05:23 Blood Pressure 138/90 04/18/24 05:23 Blood Pressure Mean 106 04/18/24 05:23 Blood Pressure Left Arm 121/80 04/12/24 14:21 Blood Pressure Location Left Arm 04/18/24 05:23 Blood Pressure Position Supine 04/18/24 05:23 O2 Sat by Pulse Oximetry 96 04/18/24 05:23 Oxygen Delivery Method Room Air 04/18/24 05:47 Oxygen Flow Rate 2 04/17/24 20:00 Height 5 ft 10 in 04/12/24 14:21 Weight 81 kg 04/12/24 14:21 Telemetry Type Remote Telemetry 04/15/24 01:00 Telemetry Monitoring Continues 04/15/24 01:00 Telemetry Heart Rate 74 04/15/24 01:00 EKG LA Interval 0.14 04/15/24 01:00 EKG QRS Interval 0.08 04/15/24 01:00 Telemetry Strip Reading refused 04/15/24 13:00 Imaging: EXAM: BRAIN CT WITHOUT CONTRAST 04/12/2024 INDICATION: Fall COMPARISON: MRI brain 07/01/2022. CT head 01/03/2022 TECHNIQUE: Unenhanced CT of the head was performed from the skull base to the vertex. FINDINGS: No intracranial hemorrhage or extra-axial collection. No mass, mass effect or midline shift. The morales-white matter differentiation is preserved. Cerebral volume loss There are patchy subcortical and periventricular white matter hypodensities, most commonly seen in chronic white matter microvascular ischemic changes. The ventricles are normal in size. The basal cisterns are patent. The visualized paranasal sinuses and mastoid air cells are clear. The orbits are unremarkable. The visualized osseous structures are unremarkable. The patient is edentulous. IMPRESSION: - No acute intracranial hemorrhage or mass effect. MRI can be obtained for further evaluation as clinically indicated - Senescent changes. EXAM: CT CERVICAL SPINE WITHOUT CONTRAST. HISTORY: Fall, neck pain COMPARISON: CT neck soft tissues from 11/10/2022 TECHNIQUE: Serial axial images of the cervical spine were obtained from the skull base through the lung apices without contrast. These were viewed in multiple planes. FINDINGS: Vertebral body heights are maintained. No discrete fracture line. No prevertebral soft tissue edema. Multilevel degenerative changes. IMPRESSION: No acute fracture. If symptoms persist, or if there is concern for occult injury, consider follow- up MRI. EXAM: CHEST RADIOGRAPH (1 VIEW) TECHNIQUE: Frontal Chest Radiograph. HISTORY: Fall COMPARISON: 12/15/2023. FINDINGS: Lines, Tubes, Devices: None Lungs and Pleura: No focal consolidation. No pleural effusion. No pneumothorax. Cardiac silhouette: Normal. Bones: No acute abnormality. IMPRESSION: No acute radiographic abnormality. EXAM: CT OF THE ABDOMEN AND PELVIS WITH CONTRAST COMPARISON: CT abdomen pelvis 02/20/2024 HISTORY: Diarrhea. Sepsis. TECHNIQUE: Axial CT images were obtained through the abdomen and pelvis with the administration of intravenous contrast. Coronal and sagittal reformatted images were also submitted for interpretation. FINDINGS: Liver: Hepatic cirrhosis and sequela of portal hypertension including recanalized paraumbilical vein and splenomegaly. Gallbladder: Cholelithiasis without evidence of acute cholecystitis. Bile ducts: No intra or extrahepatic biliary ductal dilatation. Pancreas: No lesions. The main pancreatic duct is not dilated. Spleen: The spleen is mildly enlarged by volume measuring 11.4 x 8.2 cm. Adrenal glands: Indeterminate right adrenal nodule measuring up to 2.4 cm. Kidneys: No hydronephrosis. Nonobstructing 1.6 cm left renal calculus. Ureters: Within normal limits Urinary bladder: Rubio catheter in place Reproductive organs: Prostate measures 5.6 cm in diameter. Peritoneum: No ascites or free intraperitoneal air. Gastrointestinal tract: Normal caliber. Wall thickening in the left-sided colon which may represent colitis versus portal colopathy. Liquefied stool in the transverse and right-sided colon may represent enterocolitis. Clinical correlation advised. Fecal ball in the rectum with wall thickening suggestive of fecal impaction and stercoral colitis. Clinical correlation advised. The appendix is not well visualized. Lymph nodes: No lymphadenopathy. Vessels: Atherosclerosis in the abdominal aorta and branch vessels. No aneurysm. Abdominal wall: Small fat containing bilateral inguinal hernias. Small hiatal hernia. Osseous structures: Degenerative changes. Moderate height loss of L1 vertebral body, unchanged Lower thorax: Mild bibasilar atelectasis and/or pneumonitis. IMPRESSION: - Wall thickening in the left-sided colon which may represent colitis versus portal colopathy. Liquefied stool in the transverse and right-sided colon may represent enterocolitis. Clinical correlation advised. - Fecal ball in the rectum with wall thickening suggestive of fecal impaction and stercoral colitis. Clinical correlation advised. - Nonobstructing 1.6 cm left renal calculus. - Cholelithiasis without evidence of acute cholecystitis. - Hepatic cirrhosis and sequela of portal hypertension including recanalized paraumbilical vein and mild splenomegaly. - Indeterminate right adrenal nodule measuring up to 2.4 cm. Consider further evaluation dedicated non-emergent MRI of the abdomen. Lab Results Last 24 Hours: 04/18/24 05:16 WBC 4.47 RBC 4.76 Hgb 12.8 L Hct 38.4 L MCV 80.7 MCH 26.9 L MCHC 33.3 RDW Coeff of [place] 13.3 Plt Count 120 L Immature Gran % (Auto) 0.7 Neut % (Auto) 66.9 Lymph % (Auto) 18.1 [place] % (Auto) 10.1 H Eos % (Auto) 3.8 Baso % (Auto) 0.4 Neut # (Auto) 3.0 Lymph # (Auto) 0.8 [place] # (Auto) 0.5 Eos # (Auto) 0.2 Baso # (Auto) 0.0 Immature Gran # (Auto) 0.0 Sodium 136.3 Potassium 3.44 L Chloride 106.4 Carbon Dioxide 24.5 Anion Gap 8.84 BUN 10.4 Creatinine 0.75 Estimated GFR (MDRD) 105.00 BUN/Creatinine Ratio 13.86 Glucose 106.9 H Calcium 8.11 L Total Bilirubin 0.74 AST 50.7 ALT 43.5 Alkaline Phosphatase 36.6 L Total Creatine Kinase 230.3 H CK-MB (CK-2) 2.180 CK-MB (CK-2) % 0.9400 Total Protein 5.37 L Albumin 2.86 L Globulin 2.51 Albumin/Globulin Ratio 1.13 Procalcitonin 0.11 H Discharge Instructions Discharge Planning: Discharge Planning > 40 minutes If patient is discharged with left ventricular systolic dysfunction: no Discharged with a beta pedro? [] If no, why not? [] Discharged with an jose l/arb? [] If no, why not? [] Diagnosis: Rhabdo, Colitis, Worsening Dementia Diet: Regular Activity: as tolerated New Medications: zyprexa 2.5 mg bid, medrol dose pack Discharge Medications: Medications at Discharge (Home Meds & RX) lisinopril 20 mg tablet See Rx Instructions .Route .COMPLEX #90 tabs 03/06/24 meloxicam 15 mg tablet See Rx Instructions .Route .COMPLEX #30 tabs 04/05/24 memantine 10 mg tablet 10 mg PO QDAY 30 days #30 tabs 04/05/24 Discharge Plan Discharge Discharge Orders: Discharge Patient (ONCE); Ordered 04/18/24 Ordered By: GEORGE JANE Activity Restrictions/Additional Instructions: Diagnosis: Rhabdo, Colitis, Worsening Dementia Diet: Regular Activity: as tolerated New Medications: zyprexa 2.5 mg bid, medrol dose pack Instructions: Rhabdomyolysis (GEN), Colitis (ED) Care Plan Goals: Problem: Altered Behavioral Pattern Goal: Exhibit appropriate behavior Instructions: Express feelings to family, friends, or others you trust Seek medical assistance if you feel unsafe Patient Disposition: TRANSFER SNF Prescriptions: New olanzapine 2.5 mg Tablet 2.5 mg PO BID Qty: 60 0RF methylprednisolone [Medrol (Fabiano)] 4 mg Tablets,Dose Pack 8 mg PO 0630 Qty: 21 0RF Rx Instructions: Patient is to receive all of day 1 medication no matter what time they started the package. Missed doses may be given all at once with food to catch up to current dose time. DOSAGE DIRECTIONS: 1st Day: 2 tabs (8mg) before breakfast, 1 after lunch, 1 after supper, and 2 tabs (8mg) at bedtime. 2nd Day: 1 tab before breakfast, 1 after lunch, 1 after supper, 2 tabs (8mg) at bedtime. 3rd Day: 1 tab before breakfast, 1 after lunch, 1 after supper, 1 at bedtime. 4th Day: 1 tab before breakfast, 1 tab after lunch, 1 at bedtime. 5th Day: 1 tab before breakfast and 1 at bedtime. 6th Day: 1 tab before breakfast Continued lisinopril 20 mg tablet See Rx Instructions .ROUTE .COMPLEX Qty: 90 0RF Dose Instruction: TAKE ONE TABLET DAILY GENERIC FOR ZESTRIL Rx Instructions: TAKE ONE TABLET DAILY GENERIC FOR ZESTRIL memantine 10 mg tablet 10 mg PO QDAY 30 Days Qty: 30 0RF meloxicam 15 mg tablet See Rx Instructions .ROUTE .COMPLEX Qty: 30 0RF Dose Instruction: TAKE ONE TABLET DAILY WITH FOOD GENERIC FOR MOBIC Rx Instructions: TAKE ONE TABLET DAILY WITH FOOD GENERIC FOR MOBIC Did you review [place] [employer] for ALL controlled substances?: No Discussed opioids are addictive and Narcan is available by prescription or from pharmacy.: No Condition: Stable Referrals: DONNIE MESSER PA-C [Primary Care Provider] - 04/20/24 1:30 pm
[2024-04-18] MEDS: K-DUR PO ONE (09:36)
[2024-04-18 10:25] VITALS: BP 128/83; PULSE 78; TEMP 98.3
== END 2024-04-18 11:13 | DRG 683 ==
LOC: MEDSURG B 10:08 → ED 10:08 → MEDSURG B 14:10
PROVIDERS: ADMIT Hospitalist; ATTEND Nurse Practitioner Family